=== PATIENT | female | born 1930 | race Caucasian/White ===

== ENCOUNTER → 2016-12-14 | Outpatient (CLI) | payer OTHER ==
[~2016-12-14] MED LIST: ACET-1311 PO; ARC10 PO; ASPEC81 PO; ATOR-22 PO; BISA10SU5 RE; HEALTH SHAKE PO; INSDGIPEN SQ; MAGN400T6 PO; MIRT15TA PO; MOML PO; MULTTAB58 PO; NUTR-298 PO; POTA10CA28 PO; SENN-58 PO; SODIENE PR
[2016-12-14 09:02] LABS: BLOOD UREA NITROGEN 27 mg/dl (7-18); CALCIUM 8.5 mg/dl (8.5-10.1); CARBON DIOXIDE 24 mmol/L (21-32); CHLORIDE 115 mmol/L (98-107); GLUCOSE 210 mg/dl (70-99); SODIUM 147 mmol/L (136-145)
== END ==
LOC: C.LABUPBEA 08:32
PROVIDERS: ATTEND Family Medicine
DX: E87.0 Hyperosmolality and hypernatremia (principal)

== ENCOUNTER → 2016-12-28 | Outpatient (CLI) | payer OTHER ==
[2016-12-28 11:18] LABS: BLOOD UREA NITROGEN 23 mg/dl (7-18); CALCIUM 9.1 mg/dl (8.5-10.1); CARBON DIOXIDE 27 mmol/L (21-32); CHLORIDE 112 mmol/L (98-107); GLUCOSE 144 mg/dl (70-99); POTASSIUM 4.2 mmol/L (3.5-5.1); SODIUM 146 mmol/L (136-145)
== END ==
LOC: C.LABUPBEA 09:24
PROVIDERS: ATTEND Family Medicine
DX: E87.0 Hyperosmolality and hypernatremia (principal)

== ENCOUNTER → 2017-01-25 | Outpatient (CLI) | payer OTHER ==
[2017-01-25 10:22] LABS: ESTIMATED AVERAGE GLUCOSE 126 mg/dl; HA1C FLAG Normal (Normal)
--- NOTE | 2017-02-08 13:48 | CODING QUERY MEDICAL NECESSITY ---
CQSUPPORTING DIAGNOSIS NEEDED A supporting diagnosis is required for the test/procedure performed on this patient in order for us to be reimbursed by the patient's insurance. Please provide a supporting diagnosis for the following test/procedure listed below next to the test name along with your signature. *If there is no additional diagnosis for this patient that would support the following test/procedure please document that below next to the test/procedure. Test(s)/Procedure(s) that require a supporting diagnosis: DOS 01/25/17 VITAMIN D TEST Provider Signature: Date: Thank you Greta Bee Health Information Management Once completed, please kindly fax back to [phone] For questions please call [phone]
== END ==
LOC: C.LABUPBEA 09:22
PROVIDERS: ATTEND Nurse Practitioner Family
DX: E11.9 Type 2 diabetes mellitus without complications (principal); E83.40 Disorders of magnesium metabolism, unspecified; M62.81 Muscle weakness (generalized); E55.9 Vitamin D deficiency, unspecified

== ENCOUNTER → 2017-02-23 | Outpatient (CLI) | payer OTHER | LOC: C.LABUPBEA 08:41 | PROVIDERS: ATTEND Family Medicine | DX: Z01.89 Encounter for other specified special examinations (principal) ==

== ENCOUNTER → 2017-03-15 | Outpatient (CLI) | payer OTHER ==
[2017-03-15 11:11] LABS: BLOOD UREA NITROGEN 24 mg/dl (7-18)
== END ==
LOC: C.LABUPBEA 10:06
PROVIDERS: ATTEND Nurse Practitioner Family
DX: N18.3 Chronic kidney disease, stage 3 (moderate) (principal)

== ENCOUNTER → 2017-04-27 | Outpatient (CLI) | payer OTHER ==
[2017-04-27 09:59] LABS: ESTIMATED AVERAGE GLUCOSE 111 mg/dl; HA1C FLAG Normal (Normal)
== END | disposition home or self-care (01) ==
LOC: C.LABUPBEA 09:00
PROVIDERS: ATTEND Nurse Practitioner Family
DX: E11.9 Type 2 diabetes mellitus without complications (principal)

== ENCOUNTER → 2017-05-27 | Outpatient (CLI) | payer OTHER | LOC: C.LABUPBEA 08:17 | PROVIDERS: ATTEND Nurse Practitioner Family | DX: M62.81 Muscle weakness (generalized) (principal); E03.9 Hypothyroidism, unspecified ==

== ENCOUNTER → 2017-07-27 | Outpatient (CLI) | payer OTHER ==
[2017-07-27 09:28] LABS: ESTIMATED AVERAGE GLUCOSE 117 mg/dl; HA1C FLAG Normal (Normal)
== END ==
LOC: C.LABUPBEA 08:45
PROVIDERS: ATTEND Nurse Practitioner Family
DX: E11.9 Type 2 diabetes mellitus without complications (principal); E03.9 Hypothyroidism, unspecified

== ENCOUNTER → 2017-09-13 | Outpatient (CLI) | payer OTHER ==
[2017-09-13 08:42] LABS: BLOOD UREA NITROGEN 25 mg/dl (7-18); CREATININE 1.12 mg/dl (0.60-1.20)
== END ==
LOC: C.LABUPBEA 08:07
PROVIDERS: ATTEND Nurse Practitioner Family
DX: N18.3 Chronic kidney disease, stage 3 (moderate) (principal)

== ENCOUNTER → 2017-09-16 | Outpatient (CLI) | payer OTHER ==
[2017-09-16 09:53] LABS: BLOOD UREA NITROGEN 26 mg/dl (7-18); CARBON DIOXIDE 26 mmol/L (21-32); CREATININE 1.05 mg/dl (0.60-1.20); GLUCOSE 104 mg/dl (70-99); POTASSIUM 3.8 mmol/L (3.5-5.1); SODIUM 139 mmol/L (136-145)
== END ==
LOC: C.LABUPBEA 08:58
PROVIDERS: ATTEND Nurse Practitioner Family
DX: E87.0 Hyperosmolality and hypernatremia (principal); E83.40 Disorders of magnesium metabolism, unspecified

== ENCOUNTER → 2017-10-25 | Outpatient (CLI) | payer OTHER ==
[2017-10-25 09:58] LABS: HEMOGLOBIN A1C 6.3 % (4.5-5.6)
== END ==
LOC: C.LABUPBEA 08:54
PROVIDERS: ATTEND Nurse Practitioner Family
DX: E11.9 Type 2 diabetes mellitus without complications (principal)

== ENCOUNTER 2017-11-15 14:28 | Inpatient (IN) | payer OTHER ==
[~2017-11-15] VITALS: Ht 167.6 cm; Wt 73.2 kg
[~2017-11-15 14:28] MED LIST changes: -ASPI81TA28 PO; -ATOR10TA82 PO; -CHOL2000 PO; -DONE10TA12 PO; -INSDGI SC; -INSDGIPEN SC; -INSU100I SC; -LEVO25TA5 PO; -MULT-513 PO; -NUTR-7 PO; -SENN-48 PO
[2017-11-15] MEDS ORDERED: ATOR10TA82 PO ×2 (15:12)
[2017-11-15] MEDS ORDERED: MULT-513 PO ×2 (15:12)
[2017-11-15] MEDS ORDERED: INSU100I SC ×2 (15:12)
[2017-11-15] MEDS ORDERED: DONE10TA12 PO ×2 (15:12)
[2017-11-15] MEDS ORDERED: LEVO25TA5 PO ×2 (15:12)
[2017-11-15] MEDS ORDERED: ACET-1311 PO ×2 (15:12)
[2017-11-15] MEDS ORDERED: CHOL2000 PO ×2 (15:12)
[2017-11-15] MEDS ORDERED: ASPI81TA28 PO ×2 (15:12)
[2017-11-15] MEDS ORDERED: SENN-48 PO ×2 (15:12)
[2017-11-15] MEDS ORDERED: INSDGI SC (15:12)
[2017-11-15] MEDS ORDERED: PIPERACILLIN/TAZOBACTAM 4.5 GM/100ML D5W IV STA (15:15)
[2017-11-15] MEDS ORDERED: SODIUM CHLORIDE 0.9% 1000ML 1,000 ML IV STA ×2 (15:15→16:32)
--- NOTE | 2017-11-15 15:34 | DIAGNOSTIC IMAGING REPORT ---
CHEST ONE VIEW PORTABLE CLINICAL HISTORY: 87 years-old Female presenting with change in ms. TECHNIQUE: Portable upright AP view of the chest was obtained. COMPARISON: 08/04/2016. FINDINGS: Atherosclerosis of the aortic arch. Cardiac silhouette normal in size though mitral annular calcification is evident. Heterogeneity of lung parenchyma. No focal opacity. No large effusion or pneumothorax. Degenerative changes of the thoracic spine. Upper abdomen normal. IMPRESSION: 1. No acute cardiopulmonary disease. Electronically signed by: Jon Acosta M.D. 11/15/2017 3:32 PM Dictated Date/Time: 11/15/2017 3:31 PM
[2017-11-15 16:15] LABS: PTT PATIENT 24.2 SECONDS (21.0-31.0)
[2017-11-15] MEDS ORDERED: NovoLIN-R INSULIN PER UNIT CHARGE IV STA (16:32)
--- NOTE | 2017-11-15 16:58 | DIAGNOSTIC IMAGING REPORT ---
HEAD WITHOUT CONTRAST (CT) CLINICAL HISTORY: 87 years-old Female presenting with change in ms. TECHNIQUE: Multidetector CT imaging of the head was performed without the use of intravenous contrast. IV contrast: None. A dose lowering technique was used consistent with the principles of ALARA (as low as reasonably achievable). COMPARISON: 08/01/2016. CT DOSE (mGy.cm): The estimated cumulative dose is 916.01 mGy.cm. FINDINGS: Renal Medicine Physician topogram: Unremarkable. Proportional ventricular and sulcal prominence, likely age-related parenchymal volume loss. Periventricular and subcortical white matter hypoattenuation, nonspecific but likely indicative of chronic small vessel ischemic change. No mass effect or midline shift. No hemorrhage or acute territorial infarct. No extra-axial fluid collection. Paranasal sinuses and mastoid air cells clear. Calvarium intact. Postsurgical changes of the globes. IMPRESSION: 1. Chronic small vessel ischemic change. No acute intracranial abnormality. Electronically signed by: Jon Acosta M.D. 11/15/2017 4:57 PM Dictated Date/Time: 11/15/2017 4:55 PM
[2017-11-15] MEDS ORDERED: GLUCOSE 40% GEL 15 GM TUBE PO PRN (18:00)
[2017-11-15] MEDS ORDERED: ACETAMINOPHEN 325 MG TAB PO PRN (18:00)
[2017-11-15] MEDS ORDERED: DC ALL PREVIOUSLY ORDERED DIABETES MEDS ONE (18:00)
[2017-11-15] MEDS ORDERED: GLUCOSE 10 TABS/TUBE PO PRN (18:00)
[2017-11-15] MEDS ORDERED: DEXTROSE 50% 50 ML SYR IV PRN (18:00)
[2017-11-15] MEDS ORDERED: POLYETHYLENE (MIRALAX) 17 GM PACK PO PRN (18:00)
[2017-11-15] MEDS ORDERED: GLUCAGON FOR INJ 1 MG VIAL SQ PRN (18:00)
[2017-11-15] MEDS ORDERED: HydrALAZINE HCL 20 MG/ML VIAL IV. PRN (18:00)
--- NOTE | 2017-11-15 18:12 | History and Physical ---
History & Physical Date & Time of Service: Nov 15, 2017 at 17:13 Chief Complaint: AMS Primary Care Physician: Namita Kwan History of Present Illness Source: hospital records History obtained from patient chart and discussion with ER attending. Patient is an 87yo C female resident of [facility] who presents to the ER with altered mental status, hypernatremia with Xo=344, hyperglycemia with EW=481. Patient is altered an unresponsive during exam. Unable to provide information and unable to follow commands. ER Course: NSS x 2 liters, regular insulin 8 units, Zosyn 4.5 gm IV Past Medical/Surgical History Medical Problems: 1. Altered mental status 2. COPD 3. Dementia 4. HTN 5. Diabetes 6. Hyperlipidemia 7. CVA Surgical Problems: (1) History of appendectomy (2) History of cholecystectomy Family History Unable to obtain due to altered mental status Social History Unable to obtain Smoking Status: Unknown if Ever Smoked Drug Use: none Marital Status: Housing status: lives alone Occupational Status: retired Immunizations History of Influenza Vaccine: Unknown Influenza Vaccine Date: May 07, 2009 History of Tetanus Vaccine?: Unknown History of Pneumococcal: Unknown Pneumococcal Date: December 13, 2006 History of Hepatitis B Vaccine: Unknown Allergies Coded Allergies: Lorazepam (Verified Allergy, Mild, 06/30/11) Morphine (Verified Allergy, Mild, 06/30/11) Oxycodone (Verified Adverse Reaction, Intermediate, MENTAL CHANGES, ) Home Medications Scheduled Aspirin (Aspirin Ec), 81 MG PO QAM Atorvastatin (Lipitor), 10 MG PO HS Cholecalciferol (Vitamin D3), 2,000 UNITS PO QAM Donepezil Hydrochloride (Aricept), 10 MG PO HS Insulin Glargine (Lantus), 12 UNITS SC QAM Insulin Lispro (Human) (Humalog), 0-7 UNITS SC AC Levothyroxine Sodium (Levothyroxine Sodium), 25 MCG PO QAM Multivitamins/Minerals (Mvi With Minerals), 1 TAB PO QAM Sennosides-Docusate Sodium (Sennosides/Docusate Sodiu), 1 TAB PO BID Scheduled PRN Acetaminophen (Tylenol), 650 MG PO Q4 PRN for Pain or Fever Review of Systems Unable to obtain due to altered mental status Physical Exam Vital Signs Date Time Temp Pulse Resp B/P (MAP) Pulse Ox O2 Delivery O2 Flow Rate FiO2 11/15/17 17:00 118 141/82 100 Room Air 11/15/17 16:07 133 139/114 98 Room Air 11/15/17 14:59 124 144/79 96 Room Air 11/15/17 14:37 36.4 128 20 145/80 96 Room Air 11/15/17 14:37 131 11/15/17 14:37 96 Room Air General - patient in bed, unresponsive, unable to follow commands, no verbal response Skin - warm, dry, intact, no rashes or lesions HEENT- NC/AT, small pupils reactive bilaterally, anicteric sclera, conjunctiva without injection, dry mucus membranes, poor dentition, neck supple, no JVD Heart - +S1/S2, regular, tachycardic with occasional ectopy, no m/r/g Lungs - CTA bilaterally anteriorly, no rales/rhonchi/wheezes Abd - obese, soft, NT/ND, no masses Ext - warm, 2+ pulses Neuro - patient not following commands, nonverbal Diagnostics Laboratory Results Results Past 24 Hours Test 11/15/17 15:15 11/15/17 15:39 11/15/17 15:52 Range/Units Prothrombin Time 11.0 9.0-12.0 SECONDS Prothromb Time International Ratio 1.0 0.9-1.1 Activated Partial Thromboplast Time 24.2 21.0-31.0 SECONDS Partial Thromboplastin Ratio 0.9 Magnesium Level 3.6 1.8-2.4 mg/dl Troponin I 0.056 0-0.045 ng/ml Venous Blood pH 7.43 7.36-7.41 Venous Blood Partial Pressure CO2 34 38.0-50.0 mmHg Venous Blood Partial Pressure O2 71 mmHg Venous Blood HCO3 22 mmol/L Venous Blood Oxygen Saturation 94.2 % Venous Blood Base Excess -1.5 mEq/L Lactic Acid Level 1.8 0.4-2.0 mmol/L Ammonia 28.0 11-32 umol/L Microbiology Results 11/15/17 Blood Culture, Received Pending 11/15/17 Blood Culture, Received Pending Diagnostic Radiology CHEST ONE VIEW PORTABLE CLINICAL HISTORY: 87 years-old Female presenting with change in ms. TECHNIQUE: Portable upright AP view of the chest was obtained. COMPARISON: 08/04/2016. FINDINGS: Atherosclerosis of the aortic arch. Cardiac silhouette normal in size though mitral annular calcification is evident. Heterogeneity of lung parenchyma. No focal opacity. No large effusion or pneumothorax. Degenerative changes of the thoracic spine. Upper abdomen normal. IMPRESSION: 1. No acute cardiopulmonary disease. [~ rep ct add3]] HEAD WITHOUT CONTRAST (CT) CLINICAL HISTORY: 87 years-old Female presenting with change in ms. TECHNIQUE: Multidetector CT imaging of the head was performed without the use of intravenous contrast. IV contrast: None. A dose lowering technique was used consistent with the principles of ALARA (as low as reasonably achievable). COMPARISON: 08/01/2016. CT DOSE (mGy.cm): The estimated cumulative dose is 916.01 mGy.cm. FINDINGS: Munitions Handler Supervisor topogram: Unremarkable. Proportional ventricular and sulcal prominence, likely age-related parenchymal volume loss. Periventricular and subcortical white matter hypoattenuation, nonspecific but likely indicative of chronic small vessel ischemic change. No mass effect or midline shift. No hemorrhage or acute territorial infarct. No extra-axial fluid collection. Paranasal sinuses and mastoid air cells clear. Calvarium intact. Postsurgical changes of the globes. IMPRESSION: 1. Chronic small vessel ischemic change. No acute intracranial abnormality. Electronically signed by: Jon Acosta M.D. 11/15/2017 4:57 PM Dictated Date/Time: 11/15/2017 4:55 PM Impression Assessment and Plan 87yo C female with multiple medical problems presenting with altered mental status, metabolic derangements on admission labs 1. Altered mentals status -Patient somnolent, unresponsive. CT head negative. Utox negative. Multiple laboratory abnormalities to include elevated Na, CL, BUN and Cr and elevated blood glucose. AMS is most likely secondary to metabolic derangements and severe dehydration. -Continue to monitor -Correct metabolic abnormalities as below -Check cultures 2. Hypernatremia - patient with Si=236, clinically very dry on exam. Patient with free water deficit of 3.9 liters -Correct with D5W at 90mL/hour -Check labs q 6 hours until improvement 3. Hyperglycemia - patient with blood [id number], no anion gap, negative ketones. -treat with Lantus 11 units BID, 35units/12 carbs 4. Elevated troponins - patient with stable EKG findings -continue to trend troponins -EKG in AM 5. HTN - patient presently mildly hypertensive. -Continue to monitor -Will add PRN Hydralazine if SBP >180 6. Dementia - -Continue Aricept 7. Hypothyroidism -Continue Synthroid 8. Elevated WBC - patient presently afebrile, hemodynamically stable. She was administered a dose of Zosyn in ER -Check cultures - blood and urine -Antibiotics pending culture data 9. RON - patient with elevated Cr 2.01, double his baseline. Most likely secondary to prerenal azotemia in setting of severe dehydration -Continue IVF as above -Monitor BUN/Cr/electrolytes q 6 hours -Monitor UOP - Junior catheter in place 10. F/E/N - D5W at 90mL/hr, monitor electrolytes q 6 hours, NPO for now given AMS 11. Ppx - Heparin for DVT 12. Code - DNR 13. Dispo - admit to general medical floor Resuscitation Status DNR VTE Prophylaxis Will order VTE Prophylaxis: Yes Social Service Consult Lives in [facility]
[2017-11-15] MEDS ORDERED: PHARMACY GLYCEMIC MGMT CONSULT SCH (18:51)
--- NOTE | 2017-11-15 19:42 | Pharmacy Progress Note ---
Glycemic Control Intl Consult Date of Service Nov 15, 2017. Scope Glycemic Pharmacist consulted by Dr Tita Walker on 11/15/17 for glycemic control and to write orders per [facility] inpatient glycemic control protocol Objective Weight (Kilograms): 64.000 Recent Pertinent Medications Outpatient Anti-diabetic Regimen: * Lantus 12 units SQ AM * Humalog SS 0-7 units per meal * A1c = 6.3 % 10/25/17 Risk Factors for Insulin Resistance: * IVF: IV Dextrose at 100cc/hr for hypernatremia * Diet: NPO Assessment & Plan ASSESSMENT: * 87 year old type 2 diabetic female who resides at [facility], admitted with AMS, hypernatremia and hyperglycemia * Pt on Lantus and humalog at home, I will give patient an additional dose of Lantus now for IV dextrose and hyperglycemia * Pt received 8 units IV regular insulin in ER for BSG 404mg/dl PLAN FOR INPATIENT GLYCEMIC CONTROL: * Basal insulin with LANTUS 12 units SQ daily - start today at 2000 * Correctional Insulin with NOVOLOG per scale ACHS or Q6hrs while NPO * Goal Range: Low 110 mg/dL - High 140 mg/dL * Correction Factor: 35 mg/dL/unit * Nutritional / Prandial insulin per carb ratio of 1 unit per 12 grams CHO consumed * Please note that the plan above was derived based on current level of insulin resistance and hospital stress. These recommendations are appropriate for inpatient admission only. Plan of care upon discharge will need to be reassessed to avoid potential outpatient hypo/hyperglycemia. Thank you.
[2017-11-15] MEDS ORDERED: INSULIN GLARGINE SOLOSTAR 100 UNITS/ML 3 ML PEN SC SCH (20:00)
--- NOTE | 2017-11-15 20:04 | EMERGENCY ROOM VISIT NOTE ---
History Report prepared by Janice: Barbara Contreras Under the Supervision of: Dr. Claudio Bush M.D. First contact with patient: 15:04 Chief Complaint: ALTERED MENTAL STATUS Stated Complaint: AMS Nursing Triage Summary: Pt opens eyes to name, but unable to follow commands. Pt nonverbal at this time. Assessment limited. History of Present Illness The patient is an 87 year old female who presents to the Emergency Room with persistent altered mental status starting SATELLITE DISH REPAIRER. The patient presents to the ED by EMS from [facility]. She is a DNR. She has had a change in mental status today. She had lab work today which showed a white count of 11, hemoglobin of 15 , platelet count of 265, sodium of 159, BUN of 90, creatinine of 2, and glucose of 404. The history is limited secondary to the patient's altered mental status. Source of History: [facility] notes History Limited By: AMS Onset: SATELLITE DISH REPAIRER Position: other (mental status) Quality: other (altered) Timing: other (persistent) Review of Systems Limited secondary to altered mental status. Past Medical & Surgical Medical Problems: (1) Altered mental status (2) COPD (chronic obstructive pulmonary disease) (3) Dementia (4) Diabetes mellitus (5) Hyperlipidemia (6) Hypertension Surgical Problems: (1) History of appendectomy (2) History of cholecystectomy Family History Noncontributory secondary to age. Social History Smoking Status: Unknown if Ever Smoked Alcohol Use: none Drug Use: none Marital Status: Housing Status: [facility] Occupation Status: retired Current/Historical Medications Scheduled Aspirin (Aspirin Ec), 81 MG PO QAM Atorvastatin (Lipitor), 10 MG PO HS Cholecalciferol (Vitamin D3), 2,000 UNITS PO QAM Donepezil Hydrochloride (Aricept), 10 MG PO HS Insulin Glargine (Lantus), 12 UNITS SC QAM Insulin Lispro (Human) (Humalog), 0-7 UNITS SC AC Levothyroxine Sodium (Levothyroxine Sodium), 25 MCG PO QAM Multivitamins/Minerals (Mvi With Minerals), 1 TAB PO QAM Sennosides-Docusate Sodium (Sennosides/Docusate Sodiu), 1 TAB PO BID Scheduled PRN Acetaminophen (Tylenol), 650 MG PO Q4 PRN for Pain or Fever Allergies Coded Allergies: Lorazepam (Verified Allergy, Mild, 06/30/11) Morphine (Verified Allergy, Mild, 06/30/11) Oxycodone (Verified Adverse Reaction, Intermediate, MENTAL CHANGES, ) Physical Exam Vital Signs Date Time Temp Pulse Resp B/P (MAP) Pulse Ox O2 Delivery O2 Flow Rate FiO2 11/15/17 17:15 112 141/82 99 Room Air 11/15/17 17:00 118 141/82 100 Room Air 11/15/17 16:07 133 139/114 98 Room Air 11/15/17 14:59 124 144/79 96 Room Air 11/15/17 14:37 36.4 128 20 145/80 96 Room Air 11/15/17 14:37 131 11/15/17 14:37 96 Room Air Physical Exam GENERAL: Patient is in no acute distress. HEENT: No acute trauma, normocephalic atraumatic, mucous membranes dry, no nasal congestion, no scleral icterus. Pupils equal round and reactive to light. NECK: No stridor, no adenopathy, no meningismus, trachea is midline. LUNGS: Clear to auscultation bilaterally, no wheeze, no rhonchi, breath sounds equal. HEART: 3/6 systolic murmur. There is a tachycardia noted with a regular rhythm. ABDOMEN: Soft, nontender, bowel sounds positive, no hernias, no peritonitis. EXTREMITIES: No cyanosis or edema, full range of motion of all the joints without pain or difficulty, no signs for acute trauma. NEUROLOGIC: Eyes are open, but she has no response to questions. She does not follow commands. She does withdraw from pain. SKIN: No rash, no jaundice, no diaphoresis. Medical Decision & Procedures ER Provider Diagnostic Interpretation: X-ray results as stated below per interpretation by me and the radiologist. Radiology results as stated below per my review and radiologist interpretation: CHEST ONE VIEW PORTABLE CLINICAL HISTORY: 87 years-old Female presenting with change in ms. TECHNIQUE: Portable upright AP view of the chest was obtained. COMPARISON: 08/04/2016. FINDINGS: Atherosclerosis of the aortic arch. Cardiac silhouette normal in size though mitral annular calcification is evident. Heterogeneity of lung parenchyma. No focal opacity. No large effusion or pneumothorax. Degenerative changes of the thoracic spine. Upper abdomen normal. IMPRESSION: 1. No acute cardiopulmonary disease. Electronically signed by: Jon Acosta M.D. 11/15/2017 3:32 PM Dictated Date/Time: 11/15/2017 3:31 PM HEAD WITHOUT CONTRAST (CT) CLINICAL HISTORY: 87 years-old Female presenting with change in ms. TECHNIQUE: Multidetector CT imaging of the head was performed without the use of intravenous contrast. IV contrast: None. A dose lowering technique was used consistent with the principles of ALARA (as low as reasonably achievable). COMPARISON: 08/01/2016. CT DOSE (mGy.cm): The estimated cumulative dose is 916.01 mGy.cm. FINDINGS: Cowlman topogram: Unremarkable. Proportional ventricular and sulcal prominence, likely age-related parenchymal volume loss. Periventricular and subcortical white matter hypoattenuation, nonspecific but likely indicative of chronic small vessel ischemic change. No mass effect or midline shift. No hemorrhage or acute territorial infarct. No extra-axial fluid collection. Paranasal sinuses and mastoid air cells clear. Calvarium intact. Postsurgical changes of the globes. IMPRESSION: 1. Chronic small vessel ischemic change. No acute intracranial abnormality. Electronically signed by: Jon Acosta M.D. 11/15/2017 4:57 PM Dictated Date/Time: 11/15/2017 4:55 PM Laboratory Results Test 11/15/17 15:39 11/15/17 15:52 Prothrombin Time 11.0 SECONDS (9.0-12.0) Prothromb Time International Ratio 1.0 (0.9-1.1) Activated Partial Thromboplast Time 24.2 SECONDS (21.0-31.0) Partial Thromboplastin Ratio 0.9 Magnesium Level 3.6 mg/dl (1.8-2.4) Venous Blood pH 7.43 (7.36-7.41) Venous Blood Partial Pressure CO2 34 mmHg (38.0-50.0) Venous Blood Partial Pressure O2 71 mmHg Venous Blood HCO3 22 mmol/L Venous Blood Oxygen Saturation 94.2 % Venous Blood Base Excess -1.5 mEq/L Lactic Acid Level 1.8 mmol/L (0.4-2.0) Ammonia 28.0 umol/L (11-32) Laboratory results reviewed by me. Medications Administered Medications (Trade) Dose Ordered Sig/Krystal Route Start Time Stop Time Status Last Admin Dose Admin Sodium Chloride 1,000 ml @ 999 mls/hr Q1H1M STAT IV 11/15/17 15:15 11/15/17 16:15 DC 11/15/17 16:07 999 MLS/HR Piperacillin Sod/ Tazobactam Sod (Zosyn Iv) 4.5 gm NOW STAT IV 11/15/17 15:15 11/15/17 15:19 DC 11/15/17 16:16 4.5 GM Sodium Chloride 1,000 ml @ 999 mls/hr Q1H1M STAT IV 11/15/17 16:32 11/15/17 17:32 DC 11/15/17 16:38 999 MLS/HR Insulin Human Regular (novoLIN-R U-100 PER UNIT) 8 units NOW STAT IV 11/15/17 16:32 11/15/17 16:33 DC 11/15/17 17:14 8 UNITS Miscellaneous Information (Dc All Previously Ordered Diabetes Meds) 1 ea ONE ONCE N/A 11/15/17 18:00 11/15/17 18:51 DC 11/15/17 20:42 1 EA ECG Per My Interpretation Indication: altered mental status Rate (beats per minute): 122 Rhythm: sinus tachycardia Findings: ST depression (Inferior, Lateral), T-wave inversion (Inferior, Lateral) Comparison ECG Date: 04-Aug-2016 Change: Rate increased, otherwise no significant change. ED Course 1513: The patient was evaluated in room B12B. A complete history and physical exam was performed. 1515: Zosyn Iv 4.5 gm IV, Sodium Chloride 1000 ml @ 999 mls/hr IV. 1627: I reevaluated the patient. She is doing about the same. She will be evaluated for further management. 1628: I discussed the patient's case with Dr. Walker, [facility] hospitalist. The patient will be evaluated for further management. 1632: Insulin Human Regular 8 units IV, Sodium Chloride 1000 ml @ 999 mls/hr IV. 1705: I reevaluated the patient. Dr. Walker just went in to evaluate the patient. Medical Decision Differential diagnoses considered include dehydration, electrolyte imbalance, sepsis or infection, pneumonia, intracranial bleeding, stroke, UTI. I did review the patient's lab work from earlier, she was hyponatremic, hyperglycemic. She was in acute renal failure. During this ER visit, I did order some additional laboratory tests. Her magnesium was slightly high. Lactic acid level was not elevated making sepsis less likely. Troponin was slightly elevated, likely consistent with the faster heart rate although OK was a consideration. EKG showed a sinus tachycardia with a rate of 122. There was some inferior and lateral depression/T-wave inversion although, these ST and T-wave changes had been documented before. Chest film did not show pneumonia or CHF. Brain CT showed no acute bleed or mass-effect. VBG did not demonstrate significant acidosis. Ammonia level was normal. The patient had a Junior catheter placed, there was no urine in her bladder to test. She received 1 L of IV saline for hydration, a second liter was ordered. She received 8 units of regular insulin IV. She received IV Zosyn as antibiotic coverage for the possibility of bacteremia. The patient presents with a change in mental status secondary to her metabolic abnormalities I suspect. Hospitalization is required. I spoke with case management, the on-call hospitalist was consulted. Medication Reconcilliation Current Medication List: was personally reviewed by me Blood Pressure Screening Patient's blood pressure: Elevated blood pressure Referred to hospitalist. Consults Time Called: 1626 Consulting Physician: Dr. Walker [facility] hospitalist Returned Call: 1628 Discussed the patient's case. The patient will be evaluated for further management. Impression Primary Impression: Change in mental status Additional Impressions: Hypernatremia Acute renal failure Dehydration Hyperglycemia Critical Care I have personally spent greater than 35 minutes of critical care time in the direct management of this patient. This includes bedside care, interpretation of diagnostic studies, and testing, discussion with consultants, patient, and family members, and other required patient management activities. This 35 minutes is in excess of all separately billable procedures. Scribe Attestation The scribe's documentation has been prepared under my direction and personally reviewed by me in its entirety. I confirm that the note above accurately reflects all work, treatment, procedures, and medical decision making performed by me. Departure Information Dispostion Being Evaluated By Hospitalist Referrals Namita Kwan (PCP) Patient Instructions My [facility] Problem Qualifiers
[2017-11-15] MEDS: DEXTROSE 5% 1000ML 1,000 ML IV SCH (20:43)
[2017-11-15] MEDS: DOCUSATE SODIUM/SENNA 50/8.6MG TAB PO SCH (20:49)
[2017-11-15] MEDS: DONEPEZIL HCL 10 MG TAB PO SCH (20:49)
[2017-11-15] MEDS: ATORVASTATIN 10 MG TAB PO SCH (20:49)
[2017-11-15 20:53] VITALS: O2SAT 99; BMI 22.8
[2017-11-15] MEDS ORDERED: INSULIN ASPART 100 UNITS/ML 3 ML PEN SC SCH (21:00)
[2017-11-15] MEDS: HEPARIN SOD 5000 UNIT/0.5 ML CARP SQ SCH (21:06)
[2017-11-15] MEDS: INSULIN GLARGINE SOLOSTAR 100 UNITS/ML 3 ML PEN SC SCH (21:08)
[2017-11-15] MEDS: INSULIN ASPART 100 UNITS/ML 3 ML PEN SC SCH (21:19)
[2017-11-15 21:29] VITALS: BP 116/65; PULSE 115; TEMP 36.8; O2SAT 98
[2017-11-15 23:06] LABS: CALCIUM 8.4 mg/dl (8.5-10.1); CREATININE 1.9 mg/dl (0.60-1.20); POTASSIUM 3.5 mmol/L (3.5-5.1)
[2017-11-15 23:17] VITALS: BP 132/80; PULSE 105; TEMP 36.4; O2SAT 97
[2017-11-16 00:30] VITALS: O2SAT 99
[2017-11-16] MEDS: INSULIN ASPART 100 UNITS/ML 3 ML PEN SC SCH ×6 (00:31→22:00)
[2017-11-16] MEDS: DEXTROSE 5% 1000ML 1,000 ML IV SCH (04:33)
[2017-11-16] MEDS: LEVOTHYROXINE 25 MCG TAB PO SCH (05:37)
[2017-11-16] MEDS: HEPARIN SOD 5000 UNIT/0.5 ML CARP SQ SCH ×3 (05:39→22:37)
[2017-11-16 07:08] LABS: CALCIUM 8.2 mg/dl (8.5-10.1); CREATININE 1.78 mg/dl (0.60-1.20); POTASSIUM 3.2 mmol/L (3.5-5.1)
[2017-11-16 07:13] VITALS: BP 150/74; PULSE 91; TEMP 36.8; O2SAT 96
[2017-11-16] MEDS: ASPIRIN 81 MG ECTAB PO SCH (07:47)
[2017-11-16] MEDS: DOCUSATE SODIUM/SENNA 50/8.6MG TAB PO SCH ×2 (07:47→20:50)
[2017-11-16] MEDS: CHOLECALCIFEROL 1000 INTER.UNIT TAB PO SCH (07:47)
[2017-11-16] MEDS: CEROVITE ADV FORMULA TAB PO SCH (07:47)
[2017-11-16] MEDS: INSULIN GLARGINE SOLOSTAR 100 UNITS/ML 3 ML PEN SC SCH (07:50)
--- NOTE | 2017-11-16 08:37 | Clinical Documentation Query ---
CLINICAL DOCUMENTATION QUERY 87 year old female who presents to the Emergency Room with persistent altered mental status. In your clinical opinion is this patient being managed for: ( x ) Metabolic encephalopathy in setting of hypernatremia, hypermagnesia, & RON ( ) Not Agree ( ) Other explanation of clinical findings (Please Explain) ( ) Unable to determine (Please Define) ( ) Need to Discuss The medical record reflects the following clinical findings, treatment, and risk factors. Clinical Indicators: Per H&P Patient is altered an nonnresponsive during exam. Patient not following commands, nonverbal. Sodium 164, BUN 87, Creatinine 1.90, Troponin's 0.112, Magnesium 3.6 Treatment: daily PRP's, D5W, Head CT, I/O's, Junior Risk Factors: Age, electrolyte abnormalities, RON, Hx of CVA, & dementia Please clarify and document your clinical opinion in the progress notes and discharge summary. Terms such as "probable", "suspected", "likely", "questionable", "possible", or "still to be ruled out" are acceptable. IF IN AGREEMENT, YOU MUST DOCUMENT ABOVE DIAGNOSTIC STATEMENT IN DAILY PROGRESS NOTES AND DISCHARGE SUMMARY. This document is not part of the patient's record. Thank You, Isrrael Hamilton, [place] [phone]
[2017-11-16] MEDS ORDERED: POTASSIUM CHLORIDE 10 MEQ TABCR PO ONE (08:45)
[2017-11-16 09:12] LABS: BASO % 0.1 %; BASO ABS # 0.01 K/uL (0-0.2); EOS % 0.8 %; EOS ABS # 0.06 K/uL (0-0.5); HEMATOCRIT 40.6 % (37-47); HEMOGLOBIN 12.7 g/dL (12.0-16.0); IG# 0.01 K/uL (0.00-0.02); LYMPH % 42.1 %; LYMPH ABS # 3.36 K/uL (1.2-3.4); MEAN CELL VOLUME 94.9 fL (80-100); MEAN CORPUSCULAR HEMOGLOBIN 29.7 pg (25-34); MEAN CORPUSCULAR HGB CONC 31.3 g/dl (32-36); MEAN PLATELET VOLUME 11.4 fL (7.4-10.4); MONO % 6.6 %; MONO ABS # 0.53 K/uL (0.11-0.59); NEUT % 50.3 %; NEUT ABS # 4.01 K/uL (1.4-6.5); PLATELET COUNT 199 K/uL (130-400); RED CELL DISTRIBUTION WIDTH CV 13.9 % (11.5-14.5); WHITE BLOOD COUNT 7.98 K/uL (4.8-10.8)
--- NOTE | 2017-11-16 11:40 | Pharmacy Progress Note ---
Glycemic Control Progress Note Date of Service Nov 16, 2017. Scope Glycemic Pharmacist consulted for glycemic control to write orders per [facility] inpatient glycemic control protocol. Objective Accuchecks BSG (last 24hrs): Test 11/15/17 16:29 11/15/17 18:20 11/15/17 20:38 11/15/17 22:27 Bedside Glucose 364 mg/dl (70-90) 252 mg/dl (70-90) 186 mg/dl (70-90) Random Glucose 259 mg/dl (70-99) Test 11/16/17 00:09 11/16/17 05:47 11/16/17 06:06 11/16/17 10:04 Bedside Glucose 281 mg/dl (70-90) 270 mg/dl (70-90) 311 mg/dl (70-90) Random Glucose 278 mg/dl (70-99) Recent Pertinent Medications The patient is currently receiving: * Basal insulin: Lantus 12 units every 24 hours * Correctional Insulin: Novolog Correction per scale ACHS Goal Range: Low 110 mg/dL - High 140 mg/dL Correction Factor: 35 mg/dL/unit * Prandial insulin: Per carb ratio of 1 unit per 12 grams CHO consumed * Oral Agents: nil Outpatient Anti-Diabetic Meds Please see initial H&P from 11/15/17 Assessment & Plan ASSESSMENT: * See progress note from 11/15/17 for more background info, in short: * Pt receiving SQ basal bolus insulin regimen for hyperglycemia secondary to baseline DM concurrently w/ dextrose IVF @100cc/hr for hyperNa+. * Spoke with Dr. Pelletier re: on-going fluid orders. D5 being changed to NSS 2L bolus until 209911/16/17. He doesn't plan on continuing D5 for the remainder of 11/16/17 * Patient is currently receiving an average of 27 units of insulin per day * 12 units of basal insulin * 15 units of prandial/correctional insulin * BSGs ranging 186 - 311 mg/dl over the past 24hrs PLAN FOR INPATIENT GLYCEMIC CONTROL: * Basal insulin * Lantus 12unit home dose given this AM * Conservative Lantus scale on for tonight: do not administer if BSG under 200 , give 6 units if BSG 200 or greater * Bolus insulin * NovoLog per scale q4 * Goal Range: Low 110 mg/dL - High 140 mg/dL * Correction Factor: 25 mg/dL/unit * Nutritional / Prandial insulin per carb ratio of 1 unit per 12 grams CHO consumed * Please note that the plan above was derived based on current level of insulin resistance and hospital stress. These recommendations are appropriate for inpatient admission only. Plan of care upon discharge will need to be reassessed to avoid potential outpatient hypo/hyperglycemia. Thank you.
--- NOTE | 2017-11-16 11:50 | Hospitalist Progress Note ---
Hospitalist Progress Note Date of Service Nov 16, 2017. (Clarissa Yoo ., YONI) Subjective Pt evaluation today including: conversation w/ patient, conversation w/ family , physical exam, chart review, lab review Voiding: no voiding problems Ms. Deal is unable to converse, she makes eye contact and mutters but is unintelligible. She is also unable to follow commands. Unable to answer ROS I did have a long phone conversation with family updating them on her condition and answering their questions (Clarissa Yoo CRNP) Medications Medications Administered Medications (Trade) Dose Ordered Sig/Krystal Route Start Time Stop Time Status Last Admin Dose Admin Sodium Chloride 1,000 ml @ 999 mls/hr Q1H1M STAT IV 11/15/17 15:15 11/15/17 16:15 DC 11/15/17 16:07 999 MLS/HR Piperacillin Sod/ Tazobactam Sod (Zosyn Iv) 4.5 gm NOW STAT IV 11/15/17 15:15 11/15/17 15:19 DC 11/15/17 16:16 4.5 GM Sodium Chloride 1,000 ml @ 999 mls/hr Q1H1M STAT IV 11/15/17 16:32 11/15/17 17:32 DC 11/15/17 16:38 999 MLS/HR Insulin Human Regular (novoLIN-R U-100 PER UNIT) 8 units NOW STAT IV 11/15/17 16:32 11/15/17 16:33 DC 11/15/17 17:14 8 UNITS Heparin Sodium (Porcine) (Heparin Sq 5000 Unit/0.5ml) 5,000 unit Q8H SQ 11/15/17 22:00 12/15/17 21:59 11/16/17 05:39 5,000 UNIT Miscellaneous Information (Dc All Previously Ordered Diabetes Meds) 1 ea ONE ONCE N/A 11/15/17 18:00 11/15/17 18:51 DC 11/15/17 20:42 1 EA Dextrose 1,000 ml @ 100 mls/hr Q10H IV 11/15/17 18:34 12/15/17 18:33 11/16/17 04:33 100 MLS/HR Insulin Glargine (Lantus Solostar Pen) 12 units DAILY SC 11/15/17 20:00 12/15/17 19:59 11/16/17 07:50 12 UNITS Insulin Aspart (novoLOG ASPART) SLIDING SCALE If C... Q6 SC 11/15/17 21:00 11/16/17 08:31 DC 11/16/17 05:58 4 UNITS Insulin Aspart (novoLOG ASPART) SLIDING SCALE If C... Q4H SC 11/16/17 10:00 12/15/17 20:59 11/16/17 10:11 5 UNITS Potassium Chloride (Klor-Con M10) 40 meq NOW ONCE PO 11/16/17 08:45 11/16/17 08:52 DC 11/16/17 09:17 40 MEQ (Clarissa Yoo CRNP) Objective Vital Signs Date Time Temp Pulse Resp B/P (MAP) Pulse Ox O2 Delivery O2 Flow Rate FiO2 11/16/17 08:15 Room Air 11/16/17 07:13 36.8 91 20 150/74 (99) 96 Room Air 11/16/17 00:30 99 Room Air 11/15/17 23:17 36.4 105 20 132/80 (97) 97 Room Air 11/15/17 21:29 36.8 115 20 116/65 (82) 98 Room Air 11/15/17 20:53 99 Room Air 11/15/17 20:19 108 111/58 99 11/15/17 20:01 110 111/58 99 Room Air 11/15/17 18:40 93 11/15/17 18:35 115 136/52 100 Room Air 11/15/17 17:15 112 141/82 99 Room Air 11/15/17 17:00 118 141/82 100 Room Air 11/15/17 16:07 133 139/114 98 Room Air 11/15/17 14:59 124 144/79 96 Room Air 11/15/17 14:37 36.4 128 20 145/80 96 Room Air 11/15/17 14:37 131 11/15/17 14:37 96 Room Air (Clarissa Yoo CRNP) Physical Exam Notes: General: no distress Eyes: normal inspection, PERLL Respiratory: chest non tender, clear to auscultation, normal breath sounds, no respiratory distress, no accessory muscle use Cardiac: regular rate and rhythm, no rub or gallop, no murmur, no edema, no jvd GI/: active bowel sounds, no abd pain or tenderness, soft, non distended Extremities: normal range of motion, normal strength, non tender Neuro/Psych: alert disoriented and nonverbal, flat affect, unable to follow commands Skin: normal color, dry (Clarissa Yoo ., YONI) Laboratory Results Last 24 Hours Test 11/15/17 15:39 11/15/17 15:52 11/15/17 16:29 11/15/17 18:20 Prothrombin Time 11.0 SECONDS Prothromb Time International Ratio 1.0 Activated Partial Thromboplast Time 24.2 SECONDS Partial Thromboplastin Ratio 0.9 Magnesium Level 3.6 mg/dl Troponin I 0.056 ng/ml Venous Blood pH 7.43 Venous Blood Partial Pressure CO2 34 mmHg Venous Blood Partial Pressure O2 71 mmHg Venous Blood HCO3 22 mmol/L Venous Blood Oxygen Saturation 94.2 % Venous Blood Base Excess -1.5 mEq/L Lactic Acid Level 1.8 mmol/L Ammonia 28.0 umol/L Bedside Glucose 364 mg/dl 252 mg/dl Test 11/15/17 20:38 11/15/17 22:27 11/16/17 00:09 11/16/17 05:47 Bedside Glucose 186 mg/dl 281 mg/dl 270 mg/dl Sodium Level 164 mmol/L Potassium Level 3.5 mmol/L Chloride Level 135 mmol/L Carbon Dioxide Level 21 mmol/L Anion Gap 8.0 mmol/L Blood Urea Nitrogen 87 mg/dl Creatinine 1.90 mg/dl Est Creatinine Clear Calc Drug Dose 20.3 ml/min Estimated GFR () 27.4 Estimated GFR (Non- 23.6 BUN/Creatinine Ratio 45.6 Random Glucose 259 mg/dl Calcium Level 8.4 mg/dl Troponin I 0.112 ng/ml Thyroid Stimulating Hormone (TSH) 0.797 uIu/ml Test 11/16/17 06:06 11/16/17 06:10 11/16/17 10:04 Sodium Level 161 mmol/L Potassium Level 3.2 mmol/L Chloride Level 130 mmol/L Carbon Dioxide Level 22 mmol/L Anion Gap 8.0 mmol/L Blood Urea Nitrogen 75 mg/dl Creatinine 1.78 mg/dl Est Creatinine Clear Calc Drug Dose 21.6 ml/min Estimated GFR () 29.6 Estimated GFR (Non- 25.6 BUN/Creatinine Ratio 42.2 Random Glucose 278 mg/dl Calcium Level 8.2 mg/dl Troponin I 0.116 ng/ml White Blood Count 7.98 K/uL Red Blood Count 4.28 M/uL Hemoglobin 12.7 g/dL Hematocrit 40.6 % Mean Corpuscular Volume 94.9 fL Mean Corpuscular Hemoglobin 29.7 pg Mean Corpuscular Hemoglobin Concent 31.3 g/dl Platelet Count 199 K/uL Mean Platelet Volume 11.4 fL Neutrophils (%) (Auto) 50.3 % Lymphocytes (%) (Auto) 42.1 % Monocytes (%) (Auto) 6.6 % Eosinophils (%) (Auto) 0.8 % Basophils (%) (Auto) 0.1 % Neutrophils # (Auto) 4.01 K/uL Lymphocytes # (Auto) 3.36 K/uL Monocytes # (Auto) 0.53 K/uL Eosinophils # (Auto) 0.06 K/uL Basophils # (Auto) 0.01 K/uL RDW Standard Deviation 48.0 fL RDW Coefficient of Variation 13.9 % Immature Granulocyte % (Auto) 0.1 % Immature Granulocyte # (Auto) 0.01 K/uL Bedside Glucose 311 mg/dl (Clarissa Yoo, YONI) Diagnostic Results EKG Sinus rhythm with sinus arrhythmia with short VA Inferior infarct , age undetermined Marked ST abnormality, possible lateral subendocardial injury Prolonged QT Abnormal ECG When compared with ECG of 15-NOV-2017 15:33, T wave inversion more evident in Anterior leads (Clarissa Yoo CRNP) Assessment and Plan 87yo C female with multiple medical problems presenting with altered mental status, metabolic derangements on admission labs Altered mentals status - secondary to metabolic encephalopathy due to electrolyte abnormalities and dehydration - CT head negative. Utox negative. - Multiple laboratory abnormalities to include elevated Na, CL, BUN and Cr and elevated blood glucose. - Correct metabolic abnormalities as below - BC pending, will check UC and U/A as well Hypernatremia - Na 164 last evening, decreased to 161 this morning - Patient with free water deficit of 3.9 liters on admission, now with deficit of 2.1L -Continue D5W at 100mL/hour - will titrate infusion based on next prp this afternoon -Continue prps q 6 hours until improvement Hypokalemia - K 3.2 today - replaced Hyperglycemia - patient with blood glucose 404 on admission without anion gap or ketones. - pharmacy consulted for glycemic management Elevated troponins - patient with stable EKG findings -continue to trend troponins - first two 0.112 and 0.116 -EKG with prolonged QT, inverted T waves in lateral leads - will obtain Echo today - unable to assess for symptoms due to patient mental status HTN -blood pressures with mild elevation -Will add PRN Hydralazine if SBP >180 Dementia - -Continue Aricept Hypothyroidism -Continue Synthroid Elevated WBC - patient presently afebrile, hemodynamically stable. She was administered a dose of Zosyn in ER -Check cultures as above -Antibiotics pending culture data RON - patient with elevated Cr 2.01, double her baseline. Most likely secondary to prerenal azotemia in setting of severe dehydration -Continue IVF as above -Monitor BUN/Cr/electrolytes q 6 hours -Monitor UOP - Junior catheter in place F/E/N - D5W at 100mL/hr, monitor electrolytes q 6 hours, NPO for now given AMS Ppx - Heparin for DVT Code - DNR Dispo - tele for cardiac monitoring (Clarissa Yoo, YONI) Supervising Note Dr. Pelletier I performed a history and physical examination on the patient. I reviewed above note and agree with it. I discussed plan with APC and patient. During my face to face encounter with the patient, I answered all of the patient's questions. It appears atient continues to be very dry. Goal currently is to replenish her fluids. Will switch from d5 water to NS at 200 ml per hour for 2 liters. May consider switching to Lactate ringer overnight. Once patient is replenished will check sodium level. If sodium remains elevated , will then treat with D5 water. (Lacho Pelletier M.D.)
[2017-11-16 12:47] LABS: CALCIUM 8.1 mg/dl (8.5-10.1); CREATININE 1.59 mg/dl (0.60-1.20); POTASSIUM 3.4 mmol/L (3.5-5.1)
[2017-11-16] MEDS: SODIUM CHLORIDE 0.9% 1000ML 1,000 ML IV SCH ×2 (14:18→18:04)
[2017-11-16] MEDS ORDERED: PERFLUTREN LIPID MICROSPHERE (DEFINITY) IV ONE (14:48)
[2017-11-16 15:22] VITALS: BP 115/55; PULSE 98; TEMP 36.6; O2SAT 100
[2017-11-16 15:39] LABS: CALCIUM 8.1 mg/dl (8.5-10.1); CREATININE 1.54 mg/dl (0.60-1.20); POTASSIUM 3.7 mmol/L (3.5-5.1)
[2017-11-16] MEDS: POTASSIUM CHLR 10 MEQ / WTR 10 MEQ in PREMIXED WATER 100 ML IV SCH ×2 (15:39→16:35)
--- NOTE | 2017-11-16 16:12 | ECHOCARDIOGRAM REPORT ---
*NOTICE TO RECEIVING REPUBL[employer] AGENCY This information is strictly Confidential and protected under [place] law. [place] law prohibits you from making any further disclosure of this information unless further disclosure is expressly permitted by the written consent of the person to whom it pertains or is authorized by law. A general authorization for the release of medical or other information is not sufficient for this purpose. Hospital accepts no responsibility if the information is made available to any other person, INCLUDING THE PATIENT. Interpretation Summary * Name: BARTOLOME JONES Study Date: 11/16/2017 02:14 PM BP: 150/74 mmHg * Patient Location: .[id number]\S\1 HR: 97 * : 1930 (M/d/yyy) Gender: Female Height: 66 in * Age: 87 yrs Ethnicity: [place] Weight: 152 lb * Ordering Physician: Clarissa Yoo * Referring Physician: Self, Referred * Performed By: Tita Phipps RDCS * * Reason For Study: EKG CHANGES * BSA: 1.8 m2 * -- Conclusions -- * There is severe concentric left ventricular hypertrophy. * Left ventricular systolic function is normal. * Grade I diastolic dysfunction, (abnormal relaxation pattern). * Aortic valve sclerosis moderate, without significant aortic valvular stenosis. * There is severe mitral annular calcification. * There is moderate mitral regurgitation. * There is mild mitral stenosis. * Right ventricular systolic pressure is normal. Procedure Details * A contrast injection of Definity was performed to improve assessment of LV function. * Contrast was injected into an intravenous site in the left arm. * One vial of Definity ultrasound contrast was diluted in normal saline to a total volume of 10 ml. A total of '1' ml of solution was administered during imaging. * Lot # [id number] of Definity utilized for procedure. * Expiration date NOV 25. * The attending nurse who injected the contrast agent was IRENE MOHAN RN. Left Ventricle * The left ventricle is normal in size. * The left ventricular cavity is small. * There is severe concentric left ventricular hypertrophy. * Ejection Fraction = 60-65%. * Left ventricular systolic function is normal. * Grade I diastolic dysfunction, (abnormal relaxation pattern). * The left ventricular wall motion is normal. Right Ventricle * The right ventricle is not well visualized. Atria * The left atrial size is normal. * Right atrial size is normal. Mitral Valve * There is severe mitral annular calcification. * There is mild mitral stenosis. * There is moderate mitral regurgitation. Tricuspid Valve * The tricuspid valve is not well visualized, but is grossly normal. * There is mild tricuspid regurgitation. * Right ventricular systolic pressure is normal. Aortic Valve * Aortic valve sclerosis moderate, without significant aortic valvular stenosis. * No hemodynamically significant valvular aortic stenosis. * There is no significant aortic regurgitation. Pulmonic Valve * The pulmonic valve is not well visualized. Great Vessels * The aortic root is normal size. Pericardium/Pleural * There is no pericardial effusion. Great Vessels * Normal inferior vena cava diameter and respiratory variation suggests normal central venous pressure. MMode 2D Measurements and Calculations IVSd 2.1 cm IVSs 2.0 cm LVIDd 2.2 cm LVIDs 1.4 cm LVPWd 2.0 cm LVPWs 1.9 cm IVS/LVPW 1.1 FS 33.4 % EDV(Teich) 15.5 ml ESV(Teich) 5.4 ml EF(Teich) 64.9 % EDV(cubed) 10.1 ml ESV(cubed) 3.0 ml EF(cubed) 70.5 % % IVS thick -0.84 % % LVPW thick -1.92 % LV mass(C)d 188.7 grams LV mass(C)dI 106.0 grams/m\S\2 LV mass(C)s 129.4 grams LV mass(C)sI 72.7 grams/m\S\2 SV(Teich) 10.1 ml SI(Teich) 5.7 ml/m\S\2 SV(cubed) 7.1 ml SI(cubed) 4.0 ml/m\S\2 Ao root diam 3.1 cm Ao root area 7.3 cm\S\2 LA dimension 3.4 cm LA/Ao 1.1 LVAd ap4 18.4 cm\S\2 LVLd ap4 6.6 cm EDV(MOD-sp4) 41.3 ml EDV(sp4-el) 43.6 ml LVAs ap4 10.4 cm\S\2 LVLs ap4 5.8 cm ESV(MOD-sp4) 14.8 ml ESV(sp4-el) 15.8 ml EF(MOD-sp4) 64.3 % EF(sp4-el) 63.6 % LVAd ap2 17.9 cm\S\2 LVLd ap2 6.7 cm EDV(MOD-sp2) 39.3 ml EDV(sp2-el) 40.8 ml LVAs ap2 9.9 cm\S\2 LVLs ap2 5.3 cm ESV(MOD-sp2) 14.6 ml ESV(sp2-el) 15.5 ml EF(MOD-sp2) 62.9 % EF(sp2-el) 61.9 % LVLd %diff 1.2 % EDV(MOD-bp) 40.5 ml LVLs %diff -8.17 % ESV(MOD-bp) 15.5 ml EF(MOD-bp) 61.7 % SV(MOD-sp4) 26.5 ml SI(MOD-sp4) 14.9 ml/m\S\2 SV(MOD-sp2) 24.7 ml SI(MOD-sp2) 13.9 ml/m\S\2 SV(MOD-bp) 24.9 ml SI(MOD-bp) 14.0 ml/m\S\2 SV(sp4-el) 27.7 ml SI(sp4-el) 15.6 ml/m\S\2 SV(sp2-el) 25.3 ml SI(sp2-el) 14.2 ml/m\S\2 Doppler Measurements and Calculations MV E max rome 81.7 cm/sec MV A max rome 149.6 cm/sec MV E/A 0.55 MV dec time 0.30 sec LV V1 max PG 8.0 mmHg LV V1 max 141.7 cm/sec TR max rome 250.2 cm/sec
[2017-11-16 17:58] VITALS: Ht 167.6 cm; Wt 73.2 kg
[2017-11-16 20:00] VITALS: BP 143/68; PULSE 96; TEMP 36.7; O2SAT 94
[2017-11-16 20:47] LABS: CALCIUM 7.9 mg/dl (8.5-10.1); CREATININE 1.39 mg/dl (0.60-1.20); POTASSIUM 3.6 mmol/L (3.5-5.1)
[2017-11-16] MEDS: ATORVASTATIN 10 MG TAB PO SCH (20:50)
[2017-11-16] MEDS ORDERED: INSULIN GLARGINE SOLOSTAR 100 UNITS/ML 3 ML PEN SC SCH (21:00)
[2017-11-16] MEDS ORDERED: INSULIN ASPART 100 UNITS/ML 3 ML PEN SC SCH (21:00)
[2017-11-16] MEDS: DONEPEZIL HCL 10 MG TAB PO SCH (22:01)
[2017-11-16] MEDS ORDERED: DEXTROSE 5% 1000ML 1,000 ML IV SCH (22:15)
[2017-11-16] MEDS: LACTATED RINGER'S 1000ML 1,000 ML IV SCH (22:56)
[2017-11-17] VITALS (7 sets, daily range): BP systolic 121–151; BP diastolic 51–87; PULSE 71–94; TEMP 36.1–37.2; O2SAT 92–100
[2017-11-17] MEDS: INSULIN ASPART 100 UNITS/ML 3 ML PEN SC SCH ×4 (02:00→19:07)
[2017-11-17] MEDS: LACTATED RINGER'S 1000ML 1,000 ML IV SCH (05:46)
[2017-11-17] MEDS: HEPARIN SOD 5000 UNIT/0.5 ML CARP SQ SCH ×3 (05:49→20:08)
[2017-11-17] MEDS: LEVOTHYROXINE 25 MCG TAB PO SCH (06:04)
[2017-11-17] MEDS: ASPIRIN 81 MG ECTAB PO SCH (07:32)
[2017-11-17] MEDS: DOCUSATE SODIUM/SENNA 50/8.6MG TAB PO SCH ×2 (07:32→20:03)
[2017-11-17] MEDS: CHOLECALCIFEROL 1000 INTER.UNIT TAB PO SCH (07:32)
[2017-11-17] MEDS: CEROVITE ADV FORMULA TAB PO SCH (07:32)
[2017-11-17 08:18] LABS: HEMATOCRIT 36.1 % (37-47); HEMOGLOBIN 11.4 g/dL (12.0-16.0); MEAN CORPUSCULAR HEMOGLOBIN 29.7 pg (25-34); MEAN CORPUSCULAR HGB CONC 31.6 g/dl (32-36); MEAN PLATELET VOLUME 10.9 fL (7.4-10.4); PLATELET COUNT 162 K/uL (130-400); RED CELL DISTRIBUTION WIDTH SD 47.9 fL (36.4-46.3); WHITE BLOOD COUNT 7.26 K/uL (4.8-10.8)
[2017-11-17 08:45] LABS: CALCIUM 7.9 mg/dl (8.5-10.1); CREATININE 1.21 mg/dl (0.60-1.20); POTASSIUM 3.9 mmol/L (3.5-5.1)
[2017-11-17] MEDS ORDERED: INSULIN GLARGINE SOLOSTAR 100 UNITS/ML 3 ML PEN SC SCH (09:00)
[2017-11-17] MEDS: DEXTROSE 5% 1000ML 1,000 ML IV SCH ×2 (09:17→19:08)
--- NOTE | 2017-11-17 09:43 | Pharmacy Progress Note ---
Pharmacy Glycemic Short Note 2 Date of Service Nov 17, 2017. OUTPATIENT ANTIDIABETIC REGIMEN: * Lantus 12 units SQ QAM * Humalog 0-7 units SQ AC (up to 14 units/day) * Total daily outpatient dose ~ 26 units/day Item Value Date Time Bedside Glucose 281 mg/dl H 11/16/17 0009 Bedside Glucose 270 mg/dl H 11/16/17 0547 Bedside Glucose 311 mg/dl H 11/16/17 1004 Bedside Glucose 284 mg/dl H 11/16/17 1403 Bedside Glucose 157 mg/dl H 11/16/17 1759 Bedside Glucose 98 mg/dl H 11/16/17 2229 Bedside Glucose 115 mg/dl H 11/17/17 0203 Bedside Glucose 100 mg/dl H 11/17/17 0542 ASSESSMENT: * Severe hyperglycemia on 11/15 & 11/16 secondary to illness and dextrose containing IVF. Pt possibly missed dose of outpatient Lantus morning [employer]. * 11/17: significant improvement in hyperglycemia after SQ insulin dosing titrated and dextrose IVF d/c. * NovoLog bolus insulin changed to Q4h (from Q6hrs) for increased coverage while NPO & d/t short duration of action of novolog. * Pt still NPO & AMS. Will give a reduced dose of Lantus x 1 today to prevent hypo since AM fasting BSG is slightly below goal range for patient based on age/ comorbidities. PLAN FOR INPATIENT GLYCEMIC CONTROL: * Basal insulin * Lantus 12 units SQ daily in AM * Will give a reduced dose of Lantus 10 units SQ x 1 today (instead of 12 units ) since AM fasting BSG = 100 mg/dl * Bolus insulin * NovoLog per scale ACHS or Q6hrs while NPO. Change from Q4 to Q6 coverage since D5 IVF d/c. * Goal Range: Low 110 mg/dL - High 140 mg/dL * Correction Factor: 25 mg/dL/unit * Nutritional / Prandial insulin per carb ratio of 1 unit per 12 grams CHO consumed
[2017-11-17 12:34] LABS: CREATININE 1.19 mg/dl (0.60-1.20); POTASSIUM 3.6 mmol/L (3.5-5.1)
--- NOTE | 2017-11-17 14:36 | Hospitalist Progress Note ---
Hospitalist Progress Note Date of Service Nov 17, 2017. (Clarissa Yoo ., YONI) Subjective Pt evaluation today including: conversation w/ patient, physical exam, chart review, lab review, review of inpatient medication list Voiding: no voiding problems Ms. Deal is more alert today, though mostly unintelligible. She appears comfortable. Unable to give ROS (Clarissa Yoo, YONI) Medications Medications Administered Medications (Trade) Dose Ordered Sig/Krystal Route Start Time Stop Time Status Last Admin Dose Admin Sodium Chloride 1,000 ml @ 999 mls/hr Q1H1M STAT IV 11/15/17 15:15 11/15/17 16:15 DC 11/15/17 16:07 999 MLS/HR Piperacillin Sod/ Tazobactam Sod (Zosyn Iv) 4.5 gm NOW STAT IV 11/15/17 15:15 11/15/17 15:19 DC 11/15/17 16:16 4.5 GM Sodium Chloride 1,000 ml @ 999 mls/hr Q1H1M STAT IV 11/15/17 16:32 11/15/17 17:32 DC 11/15/17 16:38 999 MLS/HR Insulin Human Regular (novoLIN-R U-100 PER UNIT) 8 units NOW STAT IV 11/15/17 16:32 11/15/17 16:33 DC 11/15/17 17:14 8 UNITS Aspirin (Ecotrin Tab) 81 mg QAM PO 11/16/17 09:00 12/16/17 08:59 11/17/17 07:32 81 MG Atorvastatin Calcium (Lipitor Tab) 10 mg HS PO 11/15/17 21:00 12/15/17 20:59 11/16/17 20:50 10 MG Donepezil HCl (Aricept Tab) 10 mg HS PO 11/15/17 21:00 12/15/17 20:59 11/16/17 22:01 10 MG Levothyroxine Sodium (Synthroid Tab) 25 mcg DAILYBB PO 11/16/17 06:30 12/16/17 06:59 11/17/17 06:04 25 MCG Multivitamins/ Minerals (Multivitamin W/ Minerals Tab) 1 tab QAM PO 11/16/17 09:00 12/16/17 08:59 11/17/17 07:32 1 TAB Senna/Docusate Sodium (Senokot S Tab) 1 tab BID PO 11/15/17 21:00 12/15/17 20:59 11/17/17 07:32 1 TAB Cholecalciferol (Vitamin D Tab) 2,000 inter.unit QAM PO 11/16/17 09:00 12/16/17 08:59 11/17/17 07:32 2,000 INTER.UNIT Heparin Sodium (Porcine) (Heparin Sq 5000 Unit/0.5ml) 5,000 unit Q8H SQ 11/15/17 22:00 12/15/17 21:59 11/17/17 13:50 5,000 UNIT Miscellaneous Information (Dc All Previously Ordered Diabetes Meds) 1 ea ONE ONCE N/A 11/15/17 18:00 11/15/17 18:51 DC 11/15/17 20:42 1 EA Dextrose 1,000 ml @ 100 mls/hr Q10H IV 11/15/17 18:34 11/16/17 12:09 DC 11/16/17 04:33 100 MLS/HR Insulin Glargine (Lantus Solostar Pen) 12 units DAILY SC 11/15/17 20:00 12/15/17 19:59 Future hold 11/16/17 07:50 12 UNITS Insulin Aspart (novoLOG ASPART) SLIDING SCALE If C... Q6 SC 11/15/17 21:00 11/16/17 08:31 DC 11/16/17 05:58 4 UNITS Insulin Aspart (novoLOG ASPART) SLIDING SCALE If C... Q4H SC 11/16/17 10:00 11/17/17 07:32 DC 11/16/17 18:06 1 UNITS Potassium Chloride (Klor-Con M10) 40 meq NOW ONCE PO 11/16/17 08:45 11/16/17 08:52 DC 11/16/17 09:17 40 MEQ Sodium Chloride 1,000 ml @ 250 mls/hr Q4H IV 11/16/17 13:45 11/16/17 21:44 DC 11/16/17 18:04 250 MLS/HR Perflutren Lipid Microsphere (Definity) 2 ml ONE ONCE IV 11/16/17 14:48 11/16/17 14:49 DC 11/16/17 14:49 2 ML Potassium Chloride 10 meq/ Prmx 100 ml @ 100 mls/hr Q1H IV 11/16/17 15:30 11/16/17 17:29 DC 11/16/17 16:35 100 MLS/HR Lactated Ringer's 1,000 ml @ 150 mls/hr Q6H40M IV 11/16/17 22:45 11/17/17 08:58 DC 11/17/17 05:46 150 MLS/HR Insulin Aspart (novoLOG ASPART) SLIDING SCALE If C... Q6 SC 11/17/17 12:00 12/17/17 11:59 11/17/17 11:41 2 UNITS Insulin Glargine (Lantus Solostar Pen) 10 units 11/17/17 SC 11/17/17 09:00 11/17/17 09:01 DC 11/17/17 09:19 10 UNITS Dextrose 1,000 ml @ 100 mls/hr Q10H IV 11/17/17 09:00 12/17/17 08:59 11/17/17 09:17 100 MLS/HR (Clarissa Yoo, YONI) Objective Vital Signs Date Time Temp Pulse Resp B/P (MAP) Pulse Ox O2 Delivery O2 Flow Rate FiO2 11/17/17 12:00 Room Air 11/17/17 11:40 36.4 94 16 121/54 (76) 98 11/17/17 08:30 Room Air 11/17/17 07:08 36.5 94 18 125/71 (89) 97 Room Air 11/17/17 04:00 Room Air 11/17/17 04:00 36.7 84 18 151/87 (108) 95 Room Air 11/17/17 00:21 37.2 71 20 137/79 (98) 92 Room Air 11/17/17 00:00 Room Air 11/16/17 20:00 Room Air 11/16/17 20:00 36.7 96 18 143/68 (93) 94 Room Air 11/16/17 16:15 Room Air 11/16/17 15:22 36.6 98 16 115/55 (75) 100 (Clarissa Yoo CRNP) Physical Exam Notes: General: no distress Eyes: normal inspection, PERLL Respiratory: chest non tender, clear to auscultation, normal breath sounds, no respiratory distress, no accessory muscle use Cardiac: regular rate and rhythm, no rub or gallop, no murmur, no edema, no jvd GI/: active bowel sounds, no abd pain or tenderness, soft, non distended Extremities: normal range of motion, normal strength, non tender Neuro/Psych: alert and disoriented Skin: normal color, dry (Clarissa Yoo ., RAC SPECIALIST) Laboratory Results Last 24 Hours Test 11/16/17 17:59 11/16/17 19:45 11/16/17 21:56 11/16/17 22:29 Bedside Glucose 157 mg/dl 98 mg/dl Sodium Level 158 mmol/L Potassium Level 3.6 mmol/L Chloride Level 134 mmol/L Carbon Dioxide Level 22 mmol/L Anion Gap 2.0 mmol/L Blood Urea Nitrogen 54 mg/dl Creatinine 1.39 mg/dl Est Creatinine Clear Calc Drug Dose 27.7 ml/min Estimated GFR () 40.0 Estimated GFR (Non- 34.5 BUN/Creatinine Ratio 38.5 Random Glucose 117 mg/dl Calcium Level 7.9 mg/dl Troponin I 0.099 ng/ml Test 11/17/17 02:03 11/17/17 05:42 11/17/17 08:01 11/17/17 11:26 Bedside Glucose 115 mg/dl 100 mg/dl 184 mg/dl White Blood Count 7.26 K/uL Red Blood Count 3.84 M/uL Hemoglobin 11.4 g/dL Hematocrit 36.1 % Mean Corpuscular Volume 94.0 fL Mean Corpuscular Hemoglobin 29.7 pg Mean Corpuscular Hemoglobin Concent 31.6 g/dl RDW Standard Deviation 47.9 fL RDW Coefficient of Variation 14.0 % Platelet Count 162 K/uL Mean Platelet Volume 10.9 fL Sodium Level 160 mmol/L Potassium Level 3.9 mmol/L Chloride Level 130 mmol/L Carbon Dioxide Level 21 mmol/L Anion Gap 8.0 mmol/L Blood Urea Nitrogen 41 mg/dl Creatinine 1.21 mg/dl Est Creatinine Clear Calc Drug Dose 31.8 ml/min Estimated GFR () 47.2 Estimated GFR (Non- 40.8 BUN/Creatinine Ratio 33.6 Random Glucose 123 mg/dl Calcium Level 7.9 mg/dl Test 11/17/17 11:57 Sodium Level 156 mmol/L Potassium Level 3.6 mmol/L Chloride Level 130 mmol/L Carbon Dioxide Level 22 mmol/L Anion Gap 4.0 mmol/L Blood Urea Nitrogen 37 mg/dl Creatinine 1.19 mg/dl Est Creatinine Clear Calc Drug Dose 32.3 ml/min Estimated GFR () 48.2 Estimated GFR (Non- 41.6 BUN/Creatinine Ratio 31.1 Random Glucose 166 mg/dl Calcium Level 8.0 mg/dl (Clarissa Yoo ., YONI) Assessment and Plan 87yo C female with multiple medical problems presenting with altered mental status, metabolic derangements on admission labs Altered mentals status - secondary to metabolic encephalopathy due to electrolyte abnormalities and dehydration - CT head negative. Utox negative. - Multiple laboratory abnormalities on admission including elevated Na, CL, BUN and Cr and elevated blood glucose. - Correct metabolic abnormalities as below - BC, UC no growth Hypernatremia - Na 164 last evening, decreased to 156 today - Patient with free water deficit of 3.9 liters on admission -Given bolus of NSS yesterday with NSS infusion following, changed to D5W at 100mL/hour today as patient's dehydration appears better given kidney function but sodium remains elevated -Continue prps q 6 hours until improvement Hypokalemia - resolved - K 3.6 today Hyperglycemia - patient with blood glucose 404 on admission without anion gap or ketones. - pharmacy consulted for glycemic management - bsgs improving today Elevated troponins - patient with stable EKG findings -continue to trend troponins - peaked at 0.116 and trending downward -EKG with prolonged QT, inverted T waves in lateral leads - Echo without WMA, showed type I diastolic dysfunction, EF 60% - unable to assess for symptoms due to patient mental status HTN -blood pressures with mild elevation -continue PRN Hydralazine if SBP >180 Dementia - -Continue Aricept Hypothyroidism -Continue Synthroid Elevated WBC - patient presently afebrile, hemodynamically stable. She was administered a dose of Zosyn in ER -Checked cultures as above - no abx indicated at this time RON - patient with elevated Cr 2.01, double her baseline. Most likely secondary to prerenal azotemia in setting of severe dehydration -Continue IVF as above -Monitor BUN/Cr/electrolytes q 6 hours -Monitor UOP - Junior catheter in place Ppx - Heparin for DVT Code - DNR Dispo - tele for cardiac monitoring (Clarissa Yoo, YONI) Supervising Note Dr. Pelletier I performed a history and physical examination on the patient. I reviewed above note and agree with it. I discussed plan with APC and patient. During my face to face encounter with the patient, I answered all of the patient's questions. Metabolic encephalopathy in setting of hypernatremia, hypermagnesia, & RON Patient is improving with IVF. Today will change to DW5 as noted above. (Lacho Pelletier M.D.)
[2017-11-17 16:25] LABS: CALCIUM 7.7 mg/dl (8.5-10.1); CREATININE 1.21 mg/dl (0.60-1.20); POTASSIUM 3.7 mmol/L (3.5-5.1)
[2017-11-17] MEDS: ATORVASTATIN 10 MG TAB PO SCH (20:02)
[2017-11-17] MEDS: DONEPEZIL HCL 10 MG TAB PO SCH (20:02)
[2017-11-17 20:35] LABS: CALCIUM 7.8 mg/dl (8.5-10.1); CREATININE 1.12 mg/dl (0.60-1.20); POTASSIUM 3.6 mmol/L (3.5-5.1)
[2017-11-18 00:19] VITALS: BP 118/67; PULSE 79; TEMP 37.1; O2SAT 91
[2017-11-18] MEDS: INSULIN ASPART 100 UNITS/ML 3 ML PEN SC SCH ×5 (00:58→21:00)
[2017-11-18 04:09] VITALS: BP 119/67; PULSE 75; TEMP 36.5; O2SAT 97
[2017-11-18] MEDS: DEXTROSE 5% 1000ML 1,000 ML IV SCH ×2 (05:17→15:10)
[2017-11-18] MEDS: HEPARIN SOD 5000 UNIT/0.5 ML CARP SQ SCH ×3 (06:15→21:14)
[2017-11-18] MEDS: LEVOTHYROXINE 25 MCG TAB PO SCH (06:18)
[2017-11-18 07:22] VITALS: BP 96/57; PULSE 76; TEMP 36.3; O2SAT 95
[2017-11-18] MEDS: CEROVITE ADV FORMULA TAB PO SCH (07:23)
[2017-11-18] MEDS: DOCUSATE SODIUM/SENNA 50/8.6MG TAB PO SCH ×2 (07:23→19:25)
[2017-11-18] MEDS: CHOLECALCIFEROL 1000 INTER.UNIT TAB PO SCH (07:23)
[2017-11-18] MEDS: ASPIRIN 81 MG ECTAB PO SCH (07:23)
[2017-11-18] MEDS: INSULIN GLARGINE SOLOSTAR 100 UNITS/ML 3 ML PEN SC SCH (07:24)
[2017-11-18 08:37] LABS: CALCIUM 7.8 mg/dl (8.5-10.1); CREATININE 1.05 mg/dl (0.60-1.20); POTASSIUM 3.6 mmol/L (3.5-5.1)
[2017-11-18] MEDS ORDERED: INSULIN ASPART 100 UNITS/ML 3 ML PEN SC ONE (08:45)
--- NOTE | 2017-11-18 10:37 | Pharmacy Progress Note ---
Pharmacy Glycemic Short Note 2 Date of Service Nov 18, 2017. OUTPATIENT ANTIDIABETIC REGIMEN: * Lantus 12 units SQ QAM * Humalog 0-7 units SQ AC (up to 14 units/day) * Total daily outpatient dose ~ 26 units/day Test 11/17/17 11:26 11/17/17 11:57 11/17/17 15:46 11/17/17 18:48 Bedside Glucose 184 mg/dl (70-90) 179 mg/dl (70-90) Random Glucose 166 mg/dl (70-99) 181 mg/dl (70-99) Test 11/17/17 19:45 11/18/17 00:16 11/18/17 06:16 11/18/17 07:55 Random Glucose 184 mg/dl (70-99) 161 mg/dl (70-99) Bedside Glucose 167 mg/dl (70-90) 155 mg/dl (70-90) ASSESSMENT: 11/18/17 * Patient received 16 units of insulin yesterday, BSGs noted above * All BSGs are acceptable, however, she remains on dextrose @ 100 cc/hr ( started at 0900 yesterday for hypernatremia) and diet has just been resumed this AM * Will plan to keep insulin regimen the same - Lantus dose already back to outpatient dose * May need to tighten CF/CR if BSGs become elevated with diet and dextrose IVFs 11/17/17 * Severe hyperglycemia on 11/15 & 11/16 secondary to illness and dextrose containing IVF. Pt possibly missed dose of outpatient Lantus morning [employer]. * 11/17: significant improvement in hyperglycemia after SQ insulin dosing titrated and dextrose IVF d/c. * NovoLog bolus insulin changed to Q4h (from Q6hrs) for increased coverage while NPO & d/t short duration of action of novolog. * Pt still NPO & AMS. Will give a reduced dose of Lantus x 1 today to prevent hypo since AM fasting BSG is slightly below goal range for patient based on age/ comorbidities. PLAN FOR INPATIENT GLYCEMIC CONTROL: * Basal insulin - no change * Lantus 12 units SQ daily in AM * Bolus insulin - no change; may need to tighten if BSGs become elevated from dextrose + diet * NovoLog per scale ACHS or Q6hrs while NPO * Goal Range: Low 110 mg/dL - High 140 mg/dL * Correction Factor: 25 mg/dL/unit * Nutritional / Prandial insulin per carb ratio of 1 unit per 12 grams CHO consumed DISCHARGE RECOMMENDATIONS: * A1c indicates excellent outpatient control, may actually be a little low for patient's age * Continue outpatient regimen on discharge as long as patient not experiencing lows
[2017-11-18 11:21] VITALS: BP 131/62; PULSE 75; TEMP 36.3; O2SAT 100
[2017-11-18 12:54] LABS: CALCIUM 7.9 mg/dl (8.5-10.1); CREATININE 1.03 mg/dl (0.60-1.20); POTASSIUM 3.2 mmol/L (3.5-5.1)
[2017-11-18 15:16] VITALS: BP 126/72; PULSE 73; TEMP 36.3; O2SAT 99
[2017-11-18] MEDS ORDERED: POTASSIUM CHLORIDE 10 MEQ TABCR PO ONE (16:00)
--- NOTE | 2017-11-18 16:09 | Hospitalist Progress Note ---
Hospitalist Progress Note Date of Service Nov 18, 2017. Subjective Pt evaluation today including: conversation w/ patient, conversation w/ family (talked to son Sea on the phone for update), physical exam, chart review, lab review, review of inpatient medication list Voiding: marks catheter in place Ms. Deal is more alert today, her responses to my questions are unintelligible. Unable to perform ros Medications Medications Administered Medications (Trade) Dose Ordered Sig/Krystal Route Start Time Stop Time Status Last Admin Dose Admin Sodium Chloride 1,000 ml @ 999 mls/hr Q1H1M STAT IV 11/15/17 15:15 11/15/17 16:15 DC 11/15/17 16:07 999 MLS/HR Piperacillin Sod/ Tazobactam Sod (Zosyn Iv) 4.5 gm NOW STAT IV 11/15/17 15:15 11/15/17 15:19 DC 11/15/17 16:16 4.5 GM Sodium Chloride 1,000 ml @ 999 mls/hr Q1H1M STAT IV 11/15/17 16:32 11/15/17 17:32 DC 11/15/17 16:38 999 MLS/HR Insulin Human Regular (novoLIN-R U-100 PER UNIT) 8 units NOW STAT IV 11/15/17 16:32 11/15/17 16:33 DC 11/15/17 17:14 8 UNITS Aspirin (Ecotrin Tab) 81 mg QAM PO 11/16/17 09:00 12/16/17 08:59 11/18/17 07:23 81 MG Atorvastatin Calcium (Lipitor Tab) 10 mg HS PO 11/15/17 21:00 12/15/17 20:59 11/17/17 20:02 10 MG Donepezil HCl (Aricept Tab) 10 mg HS PO 11/15/17 21:00 12/15/17 20:59 11/17/17 20:02 10 MG Levothyroxine Sodium (Synthroid Tab) 25 mcg DAILYBB PO 11/16/17 06:30 12/16/17 06:59 11/18/17 06:18 25 MCG Multivitamins/ Minerals (Multivitamin W/ Minerals Tab) 1 tab QAM PO 11/16/17 09:00 12/16/17 08:59 11/18/17 07:23 1 TAB Senna/Docusate Sodium (Senokot S Tab) 1 tab BID PO 11/15/17 21:00 12/15/17 20:59 11/18/17 07:23 1 TAB Cholecalciferol (Vitamin D Tab) 2,000 inter.unit QAM PO 11/16/17 09:00 12/16/17 08:59 11/18/17 07:23 2,000 INTER.UNIT Heparin Sodium (Porcine) (Heparin Sq 5000 Unit/0.5ml) 5,000 unit Q8H SQ 11/15/17 22:00 12/15/17 21:59 11/18/17 13:42 5,000 UNIT Miscellaneous Information (Dc All Previously Ordered Diabetes Meds) 1 ea ONE ONCE N/A 11/15/17 18:00 11/15/17 18:51 DC 11/15/17 20:42 1 EA Dextrose 1,000 ml @ 100 mls/hr Q10H IV 11/15/17 18:34 11/16/17 12:09 DC 11/16/17 04:33 100 MLS/HR Insulin Glargine (Lantus Solostar Pen) 12 units DAILY SC 11/15/17 20:00 12/15/17 19:59 Future hold 11/18/17 07:24 12 UNITS Insulin Aspart (novoLOG ASPART) SLIDING SCALE If C... Q6 SC 11/15/17 21:00 11/16/17 08:31 DC 11/16/17 05:58 4 UNITS Insulin Aspart (novoLOG ASPART) SLIDING SCALE If C... Q4H SC 11/16/17 10:00 11/17/17 07:32 DC 11/16/17 18:06 1 UNITS Potassium Chloride (Klor-Con M10) 40 meq NOW ONCE PO 11/16/17 08:45 11/16/17 08:52 DC 11/16/17 09:17 40 MEQ Sodium Chloride 1,000 ml @ 250 mls/hr Q4H IV 11/16/17 13:45 11/16/17 21:44 DC 11/16/17 18:04 250 MLS/HR Perflutren Lipid Microsphere (Definity) 2 ml ONE ONCE IV 11/16/17 14:48 11/16/17 14:49 DC 11/16/17 14:49 2 ML Potassium Chloride 10 meq/ Prmx 100 ml @ 100 mls/hr Q1H IV 11/16/17 15:30 11/16/17 17:29 DC 11/16/17 16:35 100 MLS/HR Lactated Ringer's 1,000 ml @ 150 mls/hr Q6H40M IV 11/16/17 22:45 11/17/17 08:58 DC 11/17/17 05:46 150 MLS/HR Insulin Aspart (novoLOG ASPART) SLIDING SCALE If C... Q6 SC 11/17/17 12:00 11/18/17 08:44 DC 11/18/17 06:17 1 UNITS Insulin Glargine (Lantus Solostar Pen) 10 units 11/17/17 SC 11/17/17 09:00 11/17/17 09:01 DC 11/17/17 09:19 10 UNITS Dextrose 1,000 ml @ 100 mls/hr Q10H IV 11/17/17 09:00 12/17/17 08:59 11/18/17 15:10 100 MLS/HR Insulin Aspart (novoLOG ASPART) SLIDING SCALE If C... ACHS SC 11/18/17 11:00 12/18/17 10:59 11/18/17 12:00 2 UNITS Objective Vital Signs Date Time Temp Pulse Resp B/P (MAP) Pulse Ox O2 Delivery O2 Flow Rate FiO2 11/18/17 15:16 36.3 73 20 126/72 (90) 99 11/18/17 12:00 Room Air 11/18/17 11:21 36.3 75 18 131/62 (85) 100 11/18/17 08:15 Room Air 11/18/17 07:22 36.3 76 18 96/57 (70) 95 Room Air 11/18/17 04:09 36.5 75 18 119/67 (84) 97 Room Air 11/18/17 04:00 Room Air 11/18/17 00:19 37.1 79 18 118/67 (84) 91 Room Air 11/18/17 00:00 Room Air 11/17/17 19:15 36.1 78 18 130/72 (91) 98 Room Air 11/17/17 16:00 98 Room Air Physical Exam Notes: General: no distress Eyes: normal inspection, PERLL Respiratory: chest non tender, clear to auscultation, normal breath sounds, no respiratory distress, no accessory muscle use Cardiac: regular rate and rhythm, no rub or gallop, no murmur, no edema, no jvd GI/: active bowel sounds, no abd pain or tenderness, soft, non distended Extremities: normal range of motion, normal strength, non tender Neuro/Psych: alert and disoriented, normal mood and affect Skin: normal color, dry Laboratory Results Last 24 Hours Test 11/17/17 18:48 11/17/17 19:45 11/18/17 00:16 11/18/17 06:16 Bedside Glucose 179 mg/dl 167 mg/dl 155 mg/dl Sodium Level 151 mmol/L Potassium Level 3.6 mmol/L Chloride Level 126 mmol/L Carbon Dioxide Level 22 mmol/L Anion Gap 3.0 mmol/L Blood Urea Nitrogen 32 mg/dl Creatinine 1.12 mg/dl Est Creatinine Clear Calc Drug Dose 34.4 ml/min Estimated GFR () 51.9 Estimated GFR (Non- 44.8 BUN/Creatinine Ratio 28.7 Random Glucose 184 mg/dl Calcium Level 7.8 mg/dl Test 11/18/17 07:55 11/18/17 11:31 11/18/17 12:11 11/18/17 15:49 Sodium Level 150 mmol/L 145 mmol/L Potassium Level 3.6 mmol/L 3.2 mmol/L Chloride Level 120 mmol/L 119 mmol/L Carbon Dioxide Level 22 mmol/L 21 mmol/L Anion Gap 7.0 mmol/L 5.0 mmol/L Blood Urea Nitrogen 24 mg/dl 23 mg/dl Creatinine 1.05 mg/dl 1.03 mg/dl Est Creatinine Clear Calc Drug Dose 40.3 ml/min 41.1 ml/min Estimated GFR () 56.1 57.4 Estimated GFR (Non- 48.4 49.5 BUN/Creatinine Ratio 23.0 22.4 Random Glucose 161 mg/dl 175 mg/dl Calcium Level 7.8 mg/dl 7.9 mg/dl Bedside Glucose 183 mg/dl Assessment and Plan 87yo C female with multiple medical problems presenting with altered mental status, metabolic derangements on admission labs Altered mentals status - secondary to metabolic encephalopathy due to electrolyte abnormalities and dehydration - CT head negative. Utox negative. - Multiple laboratory abnormalities on admission including elevated Na, CL, BUN and Cr and elevated blood glucose. - Correct metabolic abnormalities as below - BC, UC no growth - mental status at baseline now Hypernatremia - Na peaked at 164, decreased to 145 this afternoon - Patient with free water deficit of 3.9 liters on admission -Given bolus of NSS yesterday with NSS infusion following, changed to D5W at 100mL/hour as patient's dehydration appears better given kidney function but sodium remains elevated -Continue prps q 6 hours until stabilized Hypokalemia - K 3.2 today - replaced - prp q6h Hyperglycemia - patient with blood glucose 404 on admission without anion gap or ketones. - pharmacy consulted for glycemic management - bsgs improved Elevated troponins - patient with stable EKG findings -continue to trend troponins - peaked at 0.116 and trended downward -EKG with prolonged QT, inverted T waves in lateral leads - Echo without WMA, showed type I diastolic dysfunction, EF 60% HTN -blood pressures with mild elevation initially - now running low normal -continue PRN Hydralazine if SBP >180 Dementia - -Continue Aricept Hypothyroidism -Continue Synthroid Elevated WBC - patient presently afebrile, hemodynamically stable. She was administered a dose of Zosyn in ER -Checked cultures as above - no abx indicated at this time RON - patient with elevated Cr 2.01, double her baseline. Most likely secondary to prerenal azotemia in setting of severe dehydration -Continue IVF as above -Monitor BUN/Cr/electrolytes q 6 hours -Monitor UOP - Marks catheter in place Ppx - Heparin for DVT Code - DNR Dispo - transfer to med surg, return to [facility] at admission
[2017-11-18 16:29] LABS: CALCIUM 7.6 mg/dl (8.5-10.1); CREATININE 1.02 mg/dl (0.60-1.20)
[2017-11-18] MEDS: BOOST GLUCOSE CONTROL PO SCH (17:35)
[2017-11-18 20:37] LABS: CALCIUM 7.9 mg/dl (8.5-10.1); CREATININE 1.16 mg/dl (0.60-1.20); POTASSIUM 3.4 mmol/L (3.5-5.1)
[2017-11-18] MEDS: ATORVASTATIN 10 MG TAB PO SCH (21:01)
[2017-11-18] MEDS: DONEPEZIL HCL 10 MG TAB PO SCH (21:01)
[2017-11-18 23:38] VITALS: BP 115/74; PULSE 76; TEMP 36.8; O2SAT 98
[2017-11-19] MEDS: LEVOTHYROXINE 25 MCG TAB PO SCH (05:44)
[2017-11-19] MEDS: HEPARIN SOD 5000 UNIT/0.5 ML CARP SQ SCH ×3 (05:46→20:41)
[2017-11-19 07:28] VITALS: BP 120/70; PULSE 75; TEMP 36.4; O2SAT 98
[2017-11-19] MEDS: DOCUSATE SODIUM/SENNA 50/8.6MG TAB PO SCH ×2 (08:02→20:39)
[2017-11-19] MEDS: ASPIRIN 81 MG ECTAB PO SCH (08:02)
[2017-11-19] MEDS: CEROVITE ADV FORMULA TAB PO SCH (08:02)
[2017-11-19] MEDS: CHOLECALCIFEROL 1000 INTER.UNIT TAB PO SCH (08:03)
[2017-11-19] MEDS: BOOST GLUCOSE CONTROL PO SCH ×3 (08:08→17:09)
[2017-11-19] MEDS: INSULIN ASPART 100 UNITS/ML 3 ML PEN SC SCH ×4 (08:13→20:32)
[2017-11-19] MEDS: INSULIN GLARGINE SOLOSTAR 100 UNITS/ML 3 ML PEN SC SCH (08:14)
[2017-11-19 08:58] LABS: CALCIUM 7.9 mg/dl (8.5-10.1); CREATININE 1.13 mg/dl (0.60-1.20); POTASSIUM 3.3 mmol/L (3.5-5.1)
[2017-11-19 09:26] LABS: BASO % 0.2 %; BASO ABS # 0.01 K/uL (0-0.2); EOS % 2.5 %; EOS ABS # 0.14 K/uL (0-0.5); HEMATOCRIT 33.1 % (37-47); HEMOGLOBIN 10.8 g/dL (12.0-16.0); IG# 0.02 K/uL (0.00-0.02); LYMPH % 42.2 %; LYMPH ABS # 2.32 K/uL (1.2-3.4); MEAN CELL VOLUME 88.7 fL (80-100); MEAN CORPUSCULAR HGB CONC 32.6 g/dl (32-36); MEAN PLATELET VOLUME 11.1 fL (7.4-10.4); MONO % 6.4 %; MONO ABS # 0.35 K/uL (0.11-0.59); NEUT % 48.3 %; NEUT ABS # 2.66 K/uL (1.4-6.5); PLATELET COUNT 152 K/uL (130-400); RED CELL DISTRIBUTION WIDTH CV 13.3 % (11.5-14.5); RED CELL DISTRIBUTION WIDTH SD 42.9 fL (36.4-46.3)
--- NOTE | 2017-11-19 11:27 | Pharmacy Progress Note ---
Pharmacy Glycemic Short Note 2 Date of Service Nov 19, 2017. OUTPATIENT ANTIDIABETIC REGIMEN: * Lantus 12 units SQ QAM * Humalog 0-7 units SQ AC (up to 14 units/day) * Total daily outpatient dose ~ 26 units/day Item Value Date Time Bedside Glucose 155 mg/dl H 11/18/17 0616 Bedside Glucose 183 mg/dl H 11/18/17 1131 Bedside Glucose 157 mg/dl H 11/18/17 1657 Bedside Glucose 135 mg/dl H 11/18/172015 Bedside Glucose 163 mg/dl H 11/19/17 0718 ASSESSMENT: * Pt has been receiving 17 units of insulin per day with adequate control * 12 units of basal insulin with Lantus * 5 units of prandial/correctional insulin with NovoLog * Regimen is weighted towards basal insulin but PO intake is relatively low * All BSGs are in range based on age/co-morbidities. No changes needed today, PLAN FOR INPATIENT GLYCEMIC CONTROL: * Basal insulin - no change * Lantus 12 units SQ daily in AM * Bolus insulin - no change * NovoLog per scale ACHS or Q6hrs while NPO * Goal Range: Low 110 mg/dL - High 140 mg/dL * Correction Factor: 25 mg/dL/unit * Nutritional / Prandial insulin per carb ratio of 1 unit per 12 grams CHO consumed DISCHARGE RECOMMENDATIONS: * A1c indicates excellent outpatient control, may actually be a little low for patient's age * Continue outpatient regimen on discharge as long as patient not experiencing lows
[2017-11-19] MEDS ORDERED: POTASSIUM CHLORIDE 10 MEQ TABCR PO ONE (13:00)
--- NOTE | 2017-11-19 13:03 | Hospitalist Progress Note ---
Hospitalist Progress Note Date of Service Nov 19, 2017. Subjective Pt evaluation today including: conversation w/ patient, physical exam, chart review, lab review, review of inpatient medication list Voiding: no voiding problems Ms. Deal is alert today and says "Well hello sweetie" when I address her, otherwise her speech is unintelligible. She appears comfortable. Unable to answer ROS Medications Medications Administered Medications (Trade) Dose Ordered Sig/Krystal Route Start Time Stop Time Status Last Admin Dose Admin Sodium Chloride 1,000 ml @ 999 mls/hr Q1H1M STAT IV 11/15/17 15:15 11/15/17 16:15 DC 11/15/17 16:07 999 MLS/HR Piperacillin Sod/ Tazobactam Sod (Zosyn Iv) 4.5 gm NOW STAT IV 11/15/17 15:15 11/15/17 15:19 DC 11/15/17 16:16 4.5 GM Sodium Chloride 1,000 ml @ 999 mls/hr Q1H1M STAT IV 11/15/17 16:32 11/15/17 17:32 DC 11/15/17 16:38 999 MLS/HR Insulin Human Regular (novoLIN-R U-100 PER UNIT) 8 units NOW STAT IV 11/15/17 16:32 11/15/17 16:33 DC 11/15/17 17:14 8 UNITS Aspirin (Ecotrin Tab) 81 mg QAM PO 11/16/17 09:00 12/16/17 08:59 11/19/17 08:02 81 MG Atorvastatin Calcium (Lipitor Tab) 10 mg HS PO 11/15/17 21:00 12/15/17 20:59 11/18/17 21:01 10 MG Donepezil HCl (Aricept Tab) 10 mg HS PO 11/15/17 21:00 12/15/17 20:59 11/18/17 21:01 10 MG Levothyroxine Sodium (Synthroid Tab) 25 mcg DAILYBB PO 11/16/17 06:30 12/16/17 06:59 11/19/17 05:44 25 MCG Multivitamins/ Minerals (Multivitamin W/ Minerals Tab) 1 tab QAM PO 11/16/17 09:00 12/16/17 08:59 11/19/17 08:02 1 TAB Senna/Docusate Sodium (Senokot S Tab) 1 tab BID PO 11/15/17 21:00 12/15/17 20:59 11/19/17 08:02 1 TAB Cholecalciferol (Vitamin D Tab) 2,000 inter.unit QAM PO 11/16/17 09:00 12/16/17 08:59 11/19/17 08:03 2,000 INTER.UNIT Heparin Sodium (Porcine) (Heparin Sq 5000 Unit/0.5ml) 5,000 unit Q8H SQ 11/15/17 22:00 12/15/17 21:59 11/19/17 05:46 5,000 UNIT Miscellaneous Information (Dc All Previously Ordered Diabetes Meds) 1 ea ONE ONCE N/A 11/15/17 18:00 11/15/17 18:51 DC 11/15/17 20:42 1 EA Dextrose 1,000 ml @ 100 mls/hr Q10H IV 11/15/17 18:34 11/16/17 12:09 DC 11/16/17 04:33 100 MLS/HR Insulin Glargine (Lantus Solostar Pen) 12 units DAILY SC 11/15/17 20:00 12/15/17 19:59 Future hold 11/19/17 08:14 12 UNITS Insulin Aspart (novoLOG ASPART) SLIDING SCALE If C... Q6 SC 11/15/17 21:00 11/16/17 08:31 DC 11/16/17 05:58 4 UNITS Insulin Aspart (novoLOG ASPART) SLIDING SCALE If C... Q4H SC 11/16/17 10:00 11/17/17 07:32 DC 11/16/17 18:06 1 UNITS Potassium Chloride (Klor-Con M10) 40 meq NOW ONCE PO 11/16/17 08:45 11/16/17 08:52 DC 11/16/17 09:17 40 MEQ Sodium Chloride 1,000 ml @ 250 mls/hr Q4H IV 11/16/17 13:45 11/16/17 21:44 DC 11/16/17 18:04 250 MLS/HR Perflutren Lipid Microsphere (Definity) 2 ml ONE ONCE IV 11/16/17 14:48 11/16/17 14:49 DC 11/16/17 14:49 2 ML Potassium Chloride 10 meq/ Prmx 100 ml @ 100 mls/hr Q1H IV 11/16/17 15:30 11/16/17 17:29 DC 11/16/17 16:35 100 MLS/HR Lactated Ringer's 1,000 ml @ 150 mls/hr Q6H40M IV 11/16/17 22:45 11/17/17 08:58 DC 11/17/17 05:46 150 MLS/HR Insulin Aspart (novoLOG ASPART) SLIDING SCALE If C... Q6 SC 11/17/17 12:00 11/18/17 08:44 DC 11/18/17 06:17 1 UNITS Insulin Glargine (Lantus Solostar Pen) 10 units 11/17/17 SC 11/17/17 09:00 11/17/17 09:01 DC 11/17/17 09:19 10 UNITS Dextrose 1,000 ml @ 100 mls/hr Q10H IV 11/17/17 09:00 11/18/17 16:20 DC 11/18/17 15:10 100 MLS/HR Insulin Aspart (novoLOG ASPART) SLIDING SCALE If C... ACHS SC 11/18/17 11:00 12/18/17 10:59 11/19/17 12:27 2 UNITS Enteral Nutritional Formula (Boost Glucose Control) 1 can TIDM PO 11/18/17 17:00 12/18/17 16:59 11/19/17 08:08 1 CAN Potassium Chloride (Klor-Con M10) 40 meq NOW ONCE PO 11/18/17 16:00 11/18/17 16:01 DC 11/18/17 16:25 40 MEQ Objective Vital Signs Date Time Temp Pulse Resp B/P (MAP) Pulse Ox O2 Delivery O2 Flow Rate FiO2 11/19/17 08:00 Room Air 11/19/17 07:28 36.4 75 20 120/70 (87) 98 11/19/17 00:00 Room Air 11/18/17 23:38 36.8 76 18 115/74 (88) 98 Room Air 11/18/17 16:00 Room Air 11/18/17 15:16 36.3 73 20 126/72 (90) 99 Physical Exam Notes: General: no distress Eyes: normal inspection, PERLL Respiratory: chest non tender, clear to auscultation, normal breath sounds, no respiratory distress, no accessory muscle use Cardiac: regular rate and rhythm, no rub or gallop, no murmur, no edema, no jvd GI/: active bowel sounds, no abd pain or tenderness, soft, non distended Extremities: normal range of motion, normal strength, non tender Neuro/Psych: alert and oriented x 3, normal mood and affect Skin: normal color, dry Laboratory Results Last 24 Hours Test 11/18/17 15:49 11/18/17 16:57 11/18/17 19:59 11/18/17 20:16 Sodium Level 146 mmol/L 148 mmol/L Potassium Level 3.0 mmol/L 3.4 mmol/L Chloride Level 119 mmol/L 120 mmol/L Carbon Dioxide Level 23 mmol/L 23 mmol/L Anion Gap 5.0 mmol/L 5.0 mmol/L Blood Urea Nitrogen 22 mg/dl 21 mg/dl Creatinine 1.02 mg/dl 1.16 mg/dl Est Creatinine Clear Calc Drug Dose 41.5 ml/min 36.5 ml/min Estimated GFR () 58.1 49.7 Estimated GFR (Non- 50.1 42.9 BUN/Creatinine Ratio 21.2 17.7 Random Glucose 167 mg/dl 131 mg/dl Calcium Level 7.6 mg/dl 7.9 mg/dl Bedside Glucose 157 mg/dl 135 mg/dl Test 11/19/17 07:18 11/19/17 08:29 11/19/17 11:38 Bedside Glucose 163 mg/dl 149 mg/dl White Blood Count 5.50 K/uL Red Blood Count 3.73 M/uL Hemoglobin 10.8 g/dL Hematocrit 33.1 % Mean Corpuscular Volume 88.7 fL Mean Corpuscular Hemoglobin 29.0 pg Mean Corpuscular Hemoglobin Concent 32.6 g/dl Platelet Count 152 K/uL Mean Platelet Volume 11.1 fL Neutrophils (%) (Auto) 48.3 % Lymphocytes (%) (Auto) 42.2 % Monocytes (%) (Auto) 6.4 % Eosinophils (%) (Auto) 2.5 % Basophils (%) (Auto) 0.2 % Neutrophils # (Auto) 2.66 K/uL Lymphocytes # (Auto) 2.32 K/uL Monocytes # (Auto) 0.35 K/uL Eosinophils # (Auto) 0.14 K/uL Basophils # (Auto) 0.01 K/uL RDW Standard Deviation 42.9 fL RDW Coefficient of Variation 13.3 % Immature Granulocyte % (Auto) 0.4 % Immature Granulocyte # (Auto) 0.02 K/uL Sodium Level 148 mmol/L Potassium Level 3.3 mmol/L Chloride Level 119 mmol/L Carbon Dioxide Level 23 mmol/L Anion Gap 5.0 mmol/L Blood Urea Nitrogen 20 mg/dl Creatinine 1.13 mg/dl Est Creatinine Clear Calc Drug Dose 37.5 ml/min Estimated GFR () 51.3 Estimated GFR (Non- 44.3 BUN/Creatinine Ratio 17.7 Random Glucose 155 mg/dl Calcium Level 7.9 mg/dl Magnesium Level 2.3 mg/dl Assessment and Plan 87yo C female with multiple medical problems presenting with altered mental status, metabolic derangements on admission labs Altered mentals status - secondary to metabolic encephalopathy due to electrolyte abnormalities and dehydration - CT head negative. Utox negative. - Multiple laboratory abnormalities on admission including elevated Na, CL, BUN and Cr and elevated blood glucose. - Correct metabolic abnormalities as below - BC, UC no growth - mental status at baseline now Hypernatremia - Na peaked at 164, decreased to 145 this afternoon - Patient with free water deficit of 3.9 liters on admission - Sodium level normalizing, IVF d/c'd, encourage po intake frequently - prp am Hypokalemia - K 3.3 today - replaced - prp am Hyperglycemia - patient with blood glucose 404 on admission without anion gap or ketones. - pharmacy consulted for glycemic management - bsgs improved Elevated troponins - patient with stable EKG findings - trops peaked at 0.116 and trended downward - EKG initially with prolonged QT, inverted T waves in lateral leads - Echo without WMA, showed type I diastolic dysfunction, EF 60% HTN -blood pressures with mild elevation initially - now running low normal -continue PRN Hydralazine if SBP >180 Dementia - -Continue Aricept Hypothyroidism -Continue Synthroid Elevated WBC - patient presently afebrile, hemodynamically stable. She was administered a dose of Zosyn in ER - Checked cultures as above - no abx indicated at this time RON - patient with elevated Cr 2.01, double her baseline. Most likely secondary to prerenal azotemia in setting of severe dehydration - resolved Ppx - Heparin for DVT Code - DNR Dispo - return to [facility] at admission
[2017-11-19 15:10] VITALS: BP 117/50; PULSE 78; TEMP 36.4; O2SAT 98
[2017-11-19] MEDS: ATORVASTATIN 10 MG TAB PO SCH (20:38)
[2017-11-19] MEDS: DONEPEZIL HCL 10 MG TAB PO SCH (20:39)
[2017-11-19 23:46] VITALS: BP 131/57; PULSE 79; TEMP 35.8; O2SAT 100
[2017-11-20] VITALS: O2SAT 100
[2017-11-20] MEDS: HEPARIN SOD 5000 UNIT/0.5 ML CARP SQ SCH ×3 (06:18→20:57)
[2017-11-20] MEDS: LEVOTHYROXINE 25 MCG TAB PO SCH (06:19)
[2017-11-20] MEDS: INSULIN ASPART 100 UNITS/ML 3 ML PEN SC SCH ×4 (06:30→20:48)
[2017-11-20 07:47] VITALS: BP 173/81; PULSE 81; TEMP 36.1; O2SAT 98
[2017-11-20] MEDS: BOOST GLUCOSE CONTROL PO SCH ×3 (08:00→17:46)
[2017-11-20 08:03] VITALS: O2SAT 98
[2017-11-20 08:25] LABS: HEMATOCRIT 35.5 % (37-47); HEMOGLOBIN 11.9 g/dL (12.0-16.0); MEAN CELL VOLUME 87.4 fL (80-100); MEAN CORPUSCULAR HEMOGLOBIN 29.3 pg (25-34); MEAN CORPUSCULAR HGB CONC 33.5 g/dl (32-36); MEAN PLATELET VOLUME 10.7 fL (7.4-10.4); PLATELET COUNT 141 K/uL (130-400); RED CELL DISTRIBUTION WIDTH CV 13.8 % (11.5-14.5); RED CELL DISTRIBUTION WIDTH SD 43.5 fL (36.4-46.3)
[2017-11-20 08:50] LABS: CALCIUM 8.2 mg/dl (8.5-10.1); CREATININE 0.96 mg/dl (0.60-1.20)
[2017-11-20 08:54] LABS: BASO % 0.5 %; BASO ABS # 0.03 K/uL (0-0.2); EOS % 2.9 %; EOS ABS # 0.17 K/uL (0-0.5); IG# 0.03 K/uL (0.00-0.02); LYMPH % 40.9 %; LYMPH ABS # 2.37 K/uL (1.2-3.4); MONO % 11.6 %; MONO ABS # 0.67 K/uL (0.11-0.59); NEUT % 43.6 %; NEUT ABS # 2.53 K/uL (1.4-6.5)
[2017-11-20] MEDS: INSULIN GLARGINE SOLOSTAR 100 UNITS/ML 3 ML PEN SC SCH (09:49)
[2017-11-20] MEDS: CEROVITE ADV FORMULA TAB PO SCH (09:50)
[2017-11-20] MEDS: DOCUSATE SODIUM/SENNA 50/8.6MG TAB PO SCH ×2 (09:50→20:54)
[2017-11-20] MEDS: CHOLECALCIFEROL 1000 INTER.UNIT TAB PO SCH (09:50)
[2017-11-20] MEDS: ASPIRIN 81 MG ECTAB PO SCH (09:50)
--- NOTE | 2017-11-20 15:18 | Progress Note ---
Subjective Date of Service: Nov 20, 2017. Subjective Pt evaluation today including: conversation w/ patient, conversation w/ family , physical exam, chart review, lab review, review of studies, review of inpatient medication list Voiding: marks catheter in place Doing the same as yesterday, pleasant, conversational, but confused, smiling, follows simple commands such as moving lower extremity, Problem List Medical Problems: (1) Acute renal failure Status: Acute (2) Altered mental status Status: Acute (3) Change in mental status Status: Acute (4) Dehydration Status: Acute (5) Hyperglycemia Status: Acute (6) Hyperglycemia Status: Acute (7) Hypernatremia Status: Acute Review of Systems Constitutional: + weakness, + fatigue, + problem reported (Limited because patient confused) Eyes: No worsening of vision, No eye pain, No discharge ENT: No hearing loss, No unusual epistaxis, No nasal symptoms, No tinnitus, No dental problems, No trouble swallowing Respiratory: No cough, No sputum, No wheezing, No shortness of breath, No dyspnea on exertion, No dyspnea at rest, No hemoptysis Cardiac: No chest pain, No orthopnea, No PND, No edema, No claudication, No palpitations Abdomen: No pain, No nausea, No vomiting, No diarrhea, No constipation Musculoskeletal: No joint pain, No muscle pain, No swelling, No calf pain Female : No dysuria, No urinary frequency, No hematuria, No incontinence, No abnormal vaginal bleeding, No vaginal discharge Neurologic: No memory loss, No paralysis, No weakness, No numbness/tingling, No vertigo, No balance problems Psychiatric: No depression symptoms, No anhedonism, No anxiety, No insomnia, No substance abuse Heme: No abnormal bleeding/bruising, No clotting problems, No swollen lymph nodes, No night sweats Endo: + fatigue, No excessive thirst, No excessive urination Skin: No rash, No itch, No new/changing skin lesions, No color change, No bleeding Objective Vital Signs Date Time Temp Pulse Resp B/P (MAP) Pulse Ox O2 Delivery O2 Flow Rate FiO2 11/20/17 07:47 36.1 81 18 173/81 (111) 98 Room Air 11/20/17 00:00 100 Room Air 11/19/17 23:46 35.8 79 18 131/57 (81) 100 Room Air 11/19/17 16:00 Room Air Physical Exam General Appearance: WD/WN, no apparent distress, + obese Eyes: normal inspection, PERRL, EOMI, sclerae normal ENT: normal ENT inspection, hearing grossly normal, pharynx normal Neck: supple, no adenopathy, thyroid normal, no JVD, no carotid bruits, trachea midline Respiratory/Chest: chest non-tender, normal breath sounds, no respiratory distress, no accessory muscle use Cardiovascular: regular rate, rhythm, no edema, no gallop, no JVD, no murmur Abdomen: normal bowel sounds, non tender, soft, no organomegaly, no pulsatile mass Extremities: normal range of motion, non-tender, normal inspection, no pedal edema, no calf tenderness, normal capillary refill, pelvis stable 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, no motor/sensory deficits, alert, normal mood/affect, + pertinent finding (Pleasant but confused) Skin: normal color, warm/dry, no rash Lymphatic: no adenopathy Laboratory Results Last 24 Hours Test 11/19/17 16:26 11/19/17 20:09 11/20/17 07:34 11/20/17 08:02 Bedside Glucose 169 mg/dl 135 mg/dl 124 mg/dl White Blood Count 5.80 K/uL Red Blood Count 4.06 M/uL Hemoglobin 11.9 g/dL Hematocrit 35.5 % Mean Corpuscular Volume 87.4 fL Mean Corpuscular Hemoglobin 29.3 pg Mean Corpuscular Hemoglobin Concent 33.5 g/dl Platelet Count 141 K/uL Mean Platelet Volume 10.7 fL Neutrophils (%) (Auto) 43.6 % Lymphocytes (%) (Auto) 40.9 % Monocytes (%) (Auto) 11.6 % Eosinophils (%) (Auto) 2.9 % Basophils (%) (Auto) 0.5 % Neutrophils # (Auto) 2.53 K/uL Lymphocytes # (Auto) 2.37 K/uL Monocytes # (Auto) 0.67 K/uL Eosinophils # (Auto) 0.17 K/uL Basophils # (Auto) 0.03 K/uL RDW Standard Deviation 43.5 fL RDW Coefficient of Variation 13.8 % Immature Granulocyte % (Auto) 0.5 % Immature Granulocyte # (Auto) 0.03 K/uL Sodium Level 149 mmol/L Potassium Level 4.0 mmol/L Chloride Level 123 mmol/L Carbon Dioxide Level 19 mmol/L Anion Gap 6.0 mmol/L Blood Urea Nitrogen 17 mg/dl Creatinine 0.96 mg/dl Est Creatinine Clear Calc Drug Dose 43.9 ml/min Estimated GFR () 62.5 Estimated GFR (Non- 53.9 BUN/Creatinine Ratio 17.6 Random Glucose 117 mg/dl Calcium Level 8.2 mg/dl Magnesium Level 2.2 mg/dl Test 11/20/17 11:22 Bedside Glucose 148 mg/dl Assessment and Plan 87yo female with multiple medical problems admitted on November 15, 2017 because of altered mental status, metabolic derangements on admission labs Altered mentals status likely from metabolic encephalopathy Metabolic encephalopathy likely due to electrolyte abnormalities and dehydration Significant hypernatremia , which is Na peaked at 164, decreased to 145 after IV fluid, sodium was persistent high since discontinuation of IV fluid of D5W Has ordered free water 100 ml q. 4 hour, for 2 days, sodium level still at 148, however her general conditions and mental status looking the same, Today has had a serious discussion with nursing staff and nursing aides about the need of offering frequent water intake, and the necessities for nursing staff to sign out when change shifts among nursing staff to give patient enough free water to take , has ordered tomorrow morning Hypokalemia Hyperglycemia - Elevated troponins - patient with stable EKG findings HTN Dementia Hypothyroidism The above conditions stable, continue current care Talk to patient's son Sea, updated him patient's conditions and [facility], planning to return back to [facility] tomorrow, Sea understands and agreed Continued [facility] stay due to: home environment unsafe for pt Discharge planning: nursing home facility
[2017-11-20 15:23] VITALS: BP 120/66; PULSE 85; TEMP 36.6; O2SAT 95
[2017-11-20 16:09] VITALS: O2SAT 98
[2017-11-20] MEDS: ATORVASTATIN 10 MG TAB PO SCH (20:53)
[2017-11-20] MEDS: DONEPEZIL HCL 10 MG TAB PO SCH (20:54)
[2017-11-20 23:20] VITALS: BP 134/62; PULSE 81; TEMP 36.7; O2SAT 96
[2017-11-21] VITALS: O2SAT 98
[2017-11-21] MEDS: HEPARIN SOD 5000 UNIT/0.5 ML CARP SQ SCH (06:10)
[2017-11-21] MEDS: LEVOTHYROXINE 25 MCG TAB PO SCH (06:10)
[2017-11-21] MEDS: INSULIN ASPART 100 UNITS/ML 3 ML PEN SC SCH ×2 (06:30→11:00)
[2017-11-21 07:00] VITALS: BP 147/85; PULSE 80; TEMP 35.9; O2SAT 100
[2017-11-21 08:03] VITALS: O2SAT 98
[2017-11-21 08:31] LABS: CALCIUM 8.1 mg/dl (8.5-10.1); CREATININE 0.96 mg/dl (0.60-1.20); POTASSIUM 3.3 mmol/L (3.5-5.1)
[2017-11-21] MEDS: BOOST GLUCOSE CONTROL PO SCH ×2 (08:58→11:41)
[2017-11-21] MEDS: DOCUSATE SODIUM/SENNA 50/8.6MG TAB PO SCH (09:00)
[2017-11-21] MEDS: CHOLECALCIFEROL 1000 INTER.UNIT TAB PO SCH (09:00)
[2017-11-21] MEDS: ASPIRIN 81 MG ECTAB PO SCH (09:00)
[2017-11-21] MEDS: CEROVITE ADV FORMULA TAB PO SCH (09:00)
[2017-11-21] MEDS: INSULIN GLARGINE SOLOSTAR 100 UNITS/ML 3 ML PEN SC SCH (09:02)
[2017-11-21] MEDS ORDERED: NUTR-7 PO ×2 (10:12)
[2017-11-21] MEDS ORDERED: INSDGIPEN SC ×2 (10:12)
--- NOTE | 2017-11-21 10:14 | Discharge Instructions ---
Discharge Instructions Date of Service Nov 21, 2017. Admission Reason for Admission: AMS Discharge Discharge Diagnosis / Problem: Altered mentals status likely from metabolic encephalopathy Discharge Goals Goal(s): Decrease discomfort, Improve function, Increase independence, Improve disease control, Improve nutritional status, Learn about illness, Diagnostic testing, Therapeutic intervention, Prevent Disease Progression, Specific goals Activity Recommendations Activity Level: Bedrest . Additional Information Patient informed of condition: Yes Advance Directives: Yes DNR: Yes Level of Care: Skilled Communicable Disease: No Prognosis: Deteriorating Junior Catheter: Yes Instructions / Follow-Up Instructions / Follow-Up you have Altered mentals status likely from metabolic encephalopathy you have Significant hypernatremia , which is Na peaked at 164, decreased to 145 after IV fluid improved to 143 today Has ordered free water 100 ml q. 4 hour, nursing staff should take seriously about the need of offering frequent water intake for patient, and the necessities for nursing staff to sign out when change shifts among nursing staff to give patient enough free water to take recommend BMP in 3 days - you need to follow up with your primary care physician in 1 week, - take medication as instructed, never overdose or any misuse, or take with alcohol, because misuse of medicine may cause organ damage or , call your primary care physician if have questions of medicaitons. - call your primary care physician OR go to local emergency room if has any fever/chill, chest pain, shortness of breathing, nausea/vomiting/abdominal pain , facial droop/slurry speech/local weakness, or if has any questions. - fall precaution - diet as instructed Current Hospital Diet Patient's current hospital diet: Diabetes Type 2 Diet Discharge Diet Recommended Diet: Diabetes Type 2 Diet Pending Studies Studies pending at discharge: no Physician Orders On Transfer POLST Discussion: without POLST completion Laboratory Results Hemoglobin A1c Test 10/25/17 05:55 Range/Units Estimated Average Glucose 134 mg/dl Hemoglobin A1c 6.3 H 4.5-5.6 % Medical Emergencies . Who to Call and When: Medical Emergencies: If at any time you feel your situation is an emergency, please call 911 immediately. . Non-Emergent Contact Non-Emergency issues call your: Primary Care Provider . . "Provider Documentation" section prepared by Jose Migeul Farah. . Core Measure Problem Core Measures: None
[2017-11-21 12:00] VITALS: BP 147/85; PULSE 80; TEMP 35.9; O2SAT 100
--- NOTE | 2017-11-21 16:17 | Progress Note ---
Subjective Date of Service: Nov 21, 2017. Subjective Pt evaluation today including: conversation w/ patient, conversation w/ family , physical exam, chart review, lab review, review of studies, review of inpatient medication list Doing the same, pleasant and confused, feeding, however only eating 10% and this morning Problem List Medical Problems: (1) Acute renal failure Status: Acute (2) Altered mental status Status: Acute (3) Change in mental status Status: Acute (4) Dehydration Status: Acute (5) Hyperglycemia Status: Acute (6) Hyperglycemia Status: Acute (7) Hypernatremia Status: Acute Review of Systems Constitutional: + problem reported (Limited because patient decreased cognition and is pleasant confused), No see HPI, No fever, No chills, No sweats , No weight loss, No weakness, No fatigue Objective Vital Signs Date Time Temp Pulse Resp B/P (MAP) Pulse Ox O2 Delivery O2 Flow Rate FiO2 11/21/17 12:00 35.9 80 18 100 Room Air 11/21/17 08:03 98 Room Air 11/21/17 07:00 35.9 80 18 147/85 (105) 100 Room Air 11/21/17 00:00 98 Room Air 11/20/17 23:20 36.7 81 18 134/62 (86) 96 Room Air Physical Exam General Appearance: WD/WN, no apparent distress Eyes: normal inspection, PERRL, EOMI, sclerae normal ENT: normal ENT inspection, hearing grossly normal, pharynx normal Neck: supple, no adenopathy, thyroid normal, no JVD, no carotid bruits, trachea midline Respiratory/Chest: chest non-tender, normal breath sounds, no respiratory distress, no accessory muscle use, + decreased breath sounds Cardiovascular: regular rate, rhythm, no edema, no gallop, no JVD, no murmur Abdomen: normal bowel sounds, non tender, soft, no organomegaly, no pulsatile mass Extremities: normal range of motion, non-tender, normal inspection, no calf tenderness, normal capillary refill, pelvis stable, + swelling (Trace edema) Neurologic/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, no motor/sensory deficits, alert, normal mood/affect, oriented x 3 Skin: normal color, warm/dry, no rash Lymphatic: no adenopathy Laboratory Results Last 24 Hours Test 11/20/17 16:19 11/20/17 20:29 11/21/17 07:35 11/21/17 07:57 Bedside Glucose 123 mg/dl 126 mg/dl 98 mg/dl Sodium Level 143 mmol/L Potassium Level 3.3 mmol/L Chloride Level 116 mmol/L Carbon Dioxide Level 20 mmol/L Anion Gap 8.0 mmol/L Blood Urea Nitrogen 16 mg/dl Creatinine 0.96 mg/dl Est Creatinine Clear Calc Drug Dose 43.9 ml/min Estimated GFR () 62.5 Estimated GFR (Non- 53.9 BUN/Creatinine Ratio 16.3 Random Glucose 86 mg/dl Calcium Level 8.1 mg/dl Test 11/21/17 11:19 Bedside Glucose 92 mg/dl Assessment and Plan 87yo female with multiple medical problems admitted on November 15, 2017 because of altered mental status, metabolic derangements on admission labs Altered mentals status likely from metabolic encephalopathy Metabolic encephalopathy likely due to electrolyte abnormalities and dehydration Significant hypernatremia , which is Na peaked at 164, decreased to 145 after IV fluid, sodium was persistent high since discontinuation of IV fluid of D5W Has ordered free water 100 ml q. 4 hour, for 2 days, sodium level still at 148, however her general conditions and mental status looking the same, Today has had a serious discussion with nursing staff and nursing aides about the need of offering frequent water intake, and the necessities for nursing staff to sign out when change shifts among nursing staff to give patient enough free water to take , This morning sodium is 143, is significantly improved, associated with patient general condition continued to be stable, Mental status is returning to her baseline Hypokalemia resolved Hyperglycemia stable Elevated troponins - patient with stable EKG findings HTN stable Dementia stable Hypothyroidism stable The above conditions stable, continue current care Talk to patient's son Sea, updated him patient's conditions and [facility], return back to [facility] , Sea understands and agreed Upon discharge remove Junior catheter, however we can reinsert if patient not able to urinate by herself Instructions / Follow-Up you have Altered mentals status likely from metabolic encephalopathy you have Significant hypernatremia , which is Na peaked at 164, decreased to 145 after IV fluid improved to 143 today Has ordered free water 100 ml q. 4 hour, nursing staff should take seriously about the need of offering frequent water intake for patient, and the necessities for nursing staff to sign out when change shifts among nursing staff to give patient enough free water to take recommend BMP in 3 days - you need to follow up with your primary care physician in 1 week, - take medication as instructed, never overdose or any misuse, or take with alcohol, because misuse of medicine may cause organ damage or , call your primary care physician if have questions of medicaitons. - call your primary care physician OR go to local emergency room if has any fever/chill, chest pain, shortness of breathing, nausea/vomiting/abdominal pain , facial droop/slurry speech/local weakness, or if has any questions. - fall precaution - diet as instructed Continued [facility] stay due to: home environment unsafe for pt Discharge planning: alf facility
[2017-11-22] MEDS ORDERED: INSULIN GLARGINE SOLOSTAR 100 UNITS/ML 3 ML PEN SC SCH (09:00)
--- NOTE | 2017-11-24 10:47 | Discharge Summary ---
Discharge Summary Date of Service Nov 24, 2017. Discharge Summary Admission Date: Nov 15, 2017 at 18:21 Discharge Date: Nov 21, 2017 Discharge Disposition: senior care facility Principal Diagnosis: Altered mentals status likely from metabolic encephalopathy Problems/Secondary Diagnoses: Altered mentals status likely from metabolic encephalopathy Significant hypernatremia Immunizations: Have You Had Influenza Vaccine: Unknown Influenza Vaccine Date: May 07, 2009 History of Tetanus Vaccine?: Unknown History of Pneumococcal: Unknown Pneumococcal Date: December 13, 2006 History of Hepatitis B Vaccine: Unknown Procedures: no Consultations: no Medication Reconciliation New Medications: Insulin Glargine (Lantus Solostar) 100 Unit/Ml Inj 10 UNITS SC DAILY for 14 Days Nutritional Supplements (Boost) 1 Liq Liq 1 CAN PO TIDM for 30 Days Continued Medications: Acetaminophen (Tylenol) 325 Mg Tab 650 MG PO Q4 PRN for Pain or Fever Aspirin (Aspirin Ec) 81 Mg Tab 81 MG PO QAM Atorvastatin (Lipitor) 10 Mg Tab 10 MG PO HS Cholecalciferol (Vitamin D3) 2,000 Unit Cap 2000 UNITS PO QAM Donepezil Hydrochloride (Aricept) 10 Mg Tab 10 MG PO HS Insulin Lispro (Human) (Humalog) 100 Unit/Ml Inj 0-7 UNITS SC AC INJECT PER SLIDING SCALE: 0-200 = 0 UNITS 201-250 = 5 UNITS 251-300 = 6 UNITS 301-350 = 7 UNITS Levothyroxine Sodium (Levothyroxine Sodium) 25 Mcg Tab 25 MCG PO QAM Multivitamins/Minerals (Mvi With Minerals) Tab 1 TAB PO QAM Sennosides-Docusate Sodium (Sennosides/Docusate Sodiu) 1 Tab Tab 1 TAB PO BID Discontinued Medications: Insulin Glargine (Lantus) 100 Unit/Ml Inj 12 UNITS SC QAM Discharge Exam pleasant , confused, getting feeding Review of Systems: Constitutional: + problem reported (limited becasue of baseline dementia) Physical Exam: General Appearance: WD/WN, no apparent distress Eyes: normal inspection, PERRL ENT: normal ENT inspection, hearing grossly normal, TMs normal, pharynx normal Neck: supple, no adenopathy, thyroid normal, no JVD Respiratory/Chest: chest non-tender, no respiratory distress, no accessory muscle use, + decreased breath sounds Cardiovascular: regular rate, rhythm, no edema, no gallop, no JVD Abdomen / GI: normal bowel sounds, non tender, soft Extremities: normal inspection, no calf tenderness, normal capillary refill , no pedal edema, normal range of motion Neurologic/Psychiatric: alert, normal mood/affect Skin: normal color, warm/dry Hospital Course 87yo female with multiple medical problems admitted on November 15, 2017 because of altered mental status, metabolic derangements on admission labs Altered mentals status likely from metabolic encephalopathy Metabolic encephalopathy likely due to electrolyte abnormalities and dehydration Significant hypernatremia , which is Na peaked at 164, decreased to 145 after IV fluid, sodium was persistent high since discontinuation of IV fluid of D5W Has ordered free water 100 ml q. 4 hour, for 2 days, sodium level still at 148, however her general conditions and mental status looking the same, Today has had a serious discussion with nursing staff and nursing aides about the need of offering frequent water intake, and the necessities for nursing staff to sign out when change shifts among nursing staff to give patient enough free water to take , This morning sodium is 143, is significantly improved, associated with patient general condition continued to be stable, Mental status is returning to her baseline Hypokalemia resolved Hyperglycemia stable Elevated troponins - patient with stable EKG findings HTN stable Dementia stable Hypothyroidism stable The above conditions stable, continue current care Talk to patient's son Sea, updated him patient's conditions and [facility], return back to [facility] , Sea understands and agreed Upon discharge remove Junior catheter, however we can reinsert if patient not able to urinate by herself Instructions / Follow-Up you have Altered mentals status likely from metabolic encephalopathy you have Significant hypernatremia , which is Na peaked at 164, decreased to 145 after IV fluid improved to 143 today Has ordered free water 100 ml q. 4 hour, nursing staff should take seriously about the need of offering frequent water intake for patient, and the necessities for nursing staff to sign out when change shifts among nursing staff to give patient enough free water to take recommend BMP in 3 days - you need to follow up with your primary care physician in 1 week, - take medication as instructed, never overdose or any misuse, or take with alcohol, because misuse of medicine may cause organ damage or , call your primary care physician if have questions of medicaitons. - call your primary care physician OR go to local emergency room if has any fever/chill, chest pain, shortness of breathing, nausea/vomiting/abdominal pain , facial droop/slurry speech/local weakness, or if has any questions. - fall precaution - diet as instructed Total Time Spent: Greater than 30 minutes This includes examination of the patient, discharge planning, medication reconciliation, and communication with other providers. Discharge Instructions Please refer to the electronic Patient Visit Report (Discharge Instructions) for additional information. Additional Copies To [facility]
== END 2017-11-21 13:26 | DRG 682 ==
LOC: EDBD 14:28 → C.EDB 14:29 → C.MS2W 18:21 → ENRESERV 18:51
PROVIDERS: ADMIT Internal Medicine; ATTEND Hospitalist
DX: N17.9 Acute kidney failure, unspecified (principal); E87.0 Hyperosmolality and hypernatremia; G93.41 Metabolic encephalopathy; J44.9 Chronic obstructive pulmonary disease, unspecified; F03.90 Unspecified dementia, unspecified severity, without behavioral disturbance, psychotic disturbance, mood disturbance, and anxiety; E78.5 Hyperlipidemia, unspecified; I10 Essential (primary) hypertension; Z88.5 Allergy status to narcotic agent; Z88.8 Allergy status to other drugs, medicaments and biological substances; E86.0 Dehydration; E11.21 Type 2 diabetes mellitus with diabetic nephropathy; E11.65 Type 2 diabetes mellitus with hyperglycemia; R79.89 Other specified abnormal findings of blood chemistry; Z86.73 Personal history of transient ischemic attack (TIA), and cerebral infarction without residual deficits; E03.9 Hypothyroidism, unspecified; Z66 Do not resuscitate; Z79.82 Long term (current) use of aspirin; E87.6 Hypokalemia

== ENCOUNTER → 2017-11-15 | Outpatient (CLI) | payer OTHER ==
[~2017-11-15] MED LIST changes: +ASPI81TA28 PO; +ATOR10TA82 PO; +CHOL2000 PO; +DONE10TA12 PO; +INSDGI SC; +INSDGIPEN SC; +INSU100I SC; +LEVO25TA5 PO; +MULT-513 PO; +NUTR-7 PO; +SENN-48 PO
[2017-11-15 08:49] LABS: HEMATOCRIT 48.3 % (37-47); HEMOGLOBIN 15.2 g/dL (12.0-16.0); MEAN CELL VOLUME 94.2 fL (80-100); MEAN CORPUSCULAR HEMOGLOBIN 29.6 pg (25-34); MEAN CORPUSCULAR HGB CONC 31.5 g/dl (32-36); MEAN PLATELET VOLUME 12.3 fL (7.4-10.4); PLATELET COUNT 265 K/uL (130-400); RED CELL DISTRIBUTION WIDTH CV 13.9 % (11.5-14.5); RED CELL DISTRIBUTION WIDTH SD 47.7 fL (36.4-46.3); WHITE BLOOD COUNT 11.17 K/uL (4.8-10.8)
[2017-11-15 09:18] LABS: ALBUMIN 3.5 gm/dl (3.4-5.0); ALKALINE PHOSPHATASE 84 U/L (45-117); ALT/SGPT 187 U/L (12-78); AST/SGOT 59 U/L (15-37); BLOOD UREA NITROGEN 90 mg/dl (7-18); CALCIUM 9.4 mg/dl (8.5-10.1); CARBON DIOXIDE 20 mmol/L (21-32); CREATININE 2.01 mg/dl (0.60-1.20); GLUCOSE 404 mg/dl (70-99); POTASSIUM 4.1 mmol/L (3.5-5.1); SODIUM 159 mmol/L (136-145)
== END ==
LOC: C.LABUPBEA 08:38
PROVIDERS: ATTEND Nurse Practitioner Family
DX: E87.0 Hyperosmolality and hypernatremia (principal); I10 Essential (primary) hypertension; E83.40 Disorders of magnesium metabolism, unspecified; E03.9 Hypothyroidism, unspecified

== ENCOUNTER → 2017-11-23 | Outpatient (CLI) | payer OTHER ==
[~2017-11-23] MED LIST changes: -ARC10 PO; -ASPEC81 PO; +ASPI81TA28 PO; -ATOR-22 PO; +ATOR10TA82 PO; -BISA10SU5 RE; +CHOL2000 PO; +DONE10TA12 PO; -HEALTH SHAKE PO; +INSDGIPEN SC; -INSDGIPEN SQ; +INSU100I SC; +LEVO25TA5 PO; -MAGN400T6 PO; -MIRT15TA PO; -MOML PO; +MULT-513 PO; -MULTTAB58 PO; -NUTR-298 PO; +NUTR-7 PO; -POTA10CA28 PO; +SENN-48 PO; -SENN-58 PO; -SODIENE PR
[2017-11-23 08:42] LABS: HEMATOCRIT 31.3 % (37-47); HEMOGLOBIN 10.5 g/dL (12.0-16.0); MEAN CELL VOLUME 87.7 fL (80-100); MEAN CORPUSCULAR HEMOGLOBIN 29.4 pg (25-34); MEAN CORPUSCULAR HGB CONC 33.5 g/dl (32-36); PLATELET COUNT 148 K/uL (130-400); RED CELL DISTRIBUTION WIDTH CV 14.7 % (11.5-14.5); WHITE BLOOD COUNT 5.17 K/uL (4.8-10.8)
[2017-11-23 08:49] LABS: ALBUMIN 2.6 gm/dl (3.4-5.0); ALT/SGPT 42 U/L (12-78); AST/SGOT 20 U/L (15-37); BLOOD UREA NITROGEN 15 mg/dl (7-18); CALCIUM 8.4 mg/dl (8.5-10.1); CARBON DIOXIDE 20 mmol/L (21-32); CREATININE 1.05 mg/dl (0.60-1.20); GLUCOSE 141 mg/dl (70-99); POTASSIUM 3.2 mmol/L (3.5-5.1); SODIUM 143 mmol/L (136-145)
[2017-11-23 08:52] LABS: ALKALINE PHOSPHATASE 57 U/L (45-117); TOTAL PROTEIN 5.8 gm/dl (6.4-8.2)
== END ==
LOC: C.LABUPBEA 08:29
PROVIDERS: ATTEND Nurse Practitioner Family
DX: E87.0 Hyperosmolality and hypernatremia (principal)

== ENCOUNTER → 2017-11-25 | Outpatient (CLI) | payer OTHER ==
[2017-11-25 10:20] LABS: HEMOGLOBIN 9.7 g/dL (12.0-16.0); MEAN CELL VOLUME 90.1 fL (80-100); MEAN CORPUSCULAR HEMOGLOBIN 29.1 pg (25-34); MEAN CORPUSCULAR HGB CONC 32.3 g/dl (32-36); MEAN PLATELET VOLUME 11.1 fL (7.4-10.4); PLATELET COUNT 155 K/uL (130-400); RED CELL DISTRIBUTION WIDTH CV 15.5 % (11.5-14.5); RED CELL DISTRIBUTION WIDTH SD 49.9 fL (36.4-46.3); WHITE BLOOD COUNT 3.69 K/uL (4.8-10.8)
[2017-11-25 10:34] LABS: BLOOD UREA NITROGEN 17 mg/dl (7-18); CALCIUM 8.7 mg/dl (8.5-10.1); CARBON DIOXIDE 20 mmol/L (21-32); CREATININE 1.03 mg/dl (0.60-1.20); GLUCOSE 246 mg/dl (70-99); POTASSIUM 3.7 mmol/L (3.5-5.1); SODIUM 139 mmol/L (136-145)
== END ==
LOC: C.LABUPBEA 09:55
PROVIDERS: ATTEND Nurse Practitioner Family
DX: E87.0 Hyperosmolality and hypernatremia (principal); N18.3 Chronic kidney disease, stage 3 (moderate)

== ENCOUNTER → 2017-11-26 | Outpatient (CLI) | payer OTHER ==
[~2017-11-26] MED LIST changes: +ARC10 PO; +ASPEC81 PO; +ATOR-22 PO; +BISA10SU5 RE; +HEALTH SHAKE PO; +INSDGI SC; +INSDGIPEN SQ; +MAGN400T6 PO; +MIRT15TA PO; +MOML PO; +MULTTAB58 PO; +NUTR-298 PO; +POTA10CA28 PO; +SENN-58 PO; +SODIENE PR
[2017-11-26 08:24] LABS: HEMATOCRIT 30.6 % (37-47)
== END ==
LOC: C.LABUPBEA 08:04
PROVIDERS: ATTEND Nurse Practitioner Family
DX: R79.89 Other specified abnormal findings of blood chemistry (principal)

== ENCOUNTER → 2017-11-30 | Outpatient (CLI) | payer OTHER ==
[~2017-11-30] MED LIST changes: -ARC10 PO; -ASPEC81 PO; -ATOR-22 PO; -BISA10SU5 RE; -HEALTH SHAKE PO; -INSDGI SC; -INSDGIPEN SQ; -MAGN400T6 PO; -MIRT15TA PO; -MOML PO; -MULTTAB58 PO; -NUTR-298 PO; -POTA10CA28 PO; -SENN-58 PO; -SODIENE PR
[2017-11-30 09:11] LABS: BLOOD UREA NITROGEN 17 mg/dl (7-18); CALCIUM 8.7 mg/dl (8.5-10.1); CARBON DIOXIDE 23 mmol/L (21-32); CREATININE 1.05 mg/dl (0.60-1.20); GLUCOSE 157 mg/dl (70-99); POTASSIUM 3.7 mmol/L (3.5-5.1); SODIUM 137 mmol/L (136-145)
== END ==
LOC: C.LABUPBEA 08:33
PROVIDERS: ATTEND Nurse Practitioner Family
DX: E87.0 Hyperosmolality and hypernatremia (principal)

== ENCOUNTER → 2017-12-07 | Outpatient (CLI) | payer OTHER ==
[2017-12-07 08:43] LABS: HEMATOCRIT 31.7 % (37-47); HEMOGLOBIN 10.3 g/dL (12.0-16.0)
[2017-12-07 08:55] LABS: ALBUMIN 2.8 gm/dl (3.4-5.0); ALT/SGPT 25 U/L (12-78); AST/SGOT 16 U/L (15-37); BLOOD UREA NITROGEN 19 mg/dl (7-18); CALCIUM 8.5 mg/dl (8.5-10.1); CARBON DIOXIDE 25 mmol/L (21-32); CREATININE 1.01 mg/dl (0.60-1.20); GLUCOSE 177 mg/dl (70-99); POTASSIUM 3.7 mmol/L (3.5-5.1); SODIUM 138 mmol/L (136-145)
[2017-12-07 08:58] LABS: ALKALINE PHOSPHATASE 68 U/L (45-117); TOTAL PROTEIN 6.3 gm/dl (6.4-8.2)
== END ==
LOC: C.LABUPBEA 07:52
PROVIDERS: ATTEND Nurse Practitioner Family
DX: N18.3 Chronic kidney disease, stage 3 (moderate) (principal)

== ENCOUNTER → 2017-12-21 | Outpatient (CLI) | payer OTHER ==
[2017-12-21 09:46] LABS: HEMATOCRIT 32.1 % (37-47); HEMOGLOBIN 10.5 g/dL (12.0-16.0)
[2017-12-21 10:29] LABS: CREATININE 1.16 mg/dl (0.60-1.20); GLUCOSE 136 mg/dl (70-99)
[2017-12-21 12:28] LABS: BLOOD UREA NITROGEN 22 mg/dl (7-18); CALCIUM 8.5 mg/dl (8.5-10.1); CARBON DIOXIDE 24 mmol/L (21-32); SODIUM 139 mmol/L (136-145)
== END ==
LOC: C.LABUPBEA 09:17
PROVIDERS: ATTEND Nurse Practitioner Family
DX: N18.3 Chronic kidney disease, stage 3 (moderate) (principal)

== ENCOUNTER → 2018-03-03 | Outpatient (CLI) | payer OTHER ==
[2018-03-03 10:25] LABS: CREATININE 1.11 mg/dl (0.60-1.20)
[2018-03-03 10:32] LABS: HEMOGLOBIN A1C 6.1 % (4.5-5.6)
== END | disposition home or self-care (01) ==
LOC: C.LABUPBEA 09:34
PROVIDERS: ATTEND Nurse Practitioner Family
DX: E11.22 Type 2 diabetes mellitus with diabetic chronic kidney disease (principal); N18.3 Chronic kidney disease, stage 3 (moderate)